=== PATIENT | female | born 1995 | race Caucasian/White ===

== ENCOUNTER 2016-07-04 22:58 | Emergency (ER) | payer OTHER ==
[2016-07-05 00:07] VITALS: BP 103/72
--- NOTE | 2016-07-05 01:20 | ER Document Report ---
ED General - General Chief Complaint: Abdominal Pain Stated Complaint: ABDOMINAL PAIN Notes: Patient is a 21-year-old female presents with complaints of abdominal pain. She 's initially registered as a ER patient. She's 31 weeks . She says she started having abdominal pain that radiates to her back with vomiting after eating tonight. She's never had a pain like this before. This is her first . Since being in the waiting room she now is having pain that is coming in waves similar to contractions. Pain does radiate to her back. No abnormal vaginal bleeding or discharge. She denies any feelings of her water breaking. I did do a quick evaluation of the patient in the triage room. She has pain in both lower and upper abdomen. Her pain does appear to coming in waves like contractions. She denies previous abdominal surgeries. TRAVEL OUTSIDE OF THE [place] IN LAST 30 DAYS: No - Related Data Allergies/Adverse Reactions: No Known Allergies Allergy (Verified 07/05/16 00:03) Home Medications: Current Home Medications Docosahexanoic Acid [ Dha] 1 cap PO DAILY 07/05/16 [History] Ferrous Sulfate [Ferrous Sulfate] 1 tab PO DAILY 07/05/16 [History] Past Medical History - Social History Smoking Status: Unknown if Ever Smoked Frequency of alcohol use: None Drug Abuse: None Family History: Reviewed & Not Pertinent Renal/ Medical History: Denies: Hx Peritoneal Dialysis Review of Systems - Review of Systems Notes: My Normal Review Basic REVIEW OF SYSTEMS: CONSTITUTIONAL : Denies fever, chills, or sweats. Denies recent illness. EENT: Denies eye, ear, throat, or mouth pain or symptoms. Denies nasal or sinus congestion. CARDIOVASCULAR: Denies chest pain. RESPIRATORY: Denies cough, cold, or chest congestion. Denies shortness of breath, difficulty breathing, or wheezing. GASTROINTESTINAL: Anterior abdominal pain. Vomiting. Denies constipation. Last BM: GENITOURINARY: Denies difficulty urinating, painful urination, burning, frequency, or blood in urine. FEMALE GENITOURINARY: Denies vaginal bleeding, abnormal or irregular periods. LMP: 31 weeks MUSCULOSKELETAL: Denies neck or back pain or joint pain or swelling. SKIN: Denies rash or skin lesions. ALL OTHER SYSTEMS REVIEWED AND NEGATIVE. Physical Exam - Vital signs Vitals: Temp Pulse Resp BP Pulse Ox 98.3 F 92 20 103/72 100 07/05/16 00:04 07/05/16 00:04 07/05/16 00:04 07/05/16 00:04 07/05/16 00:04 - Notes Notes: General Appearance: Well nourished, alert, cooperative, no acute distress, moderate obvious discomfort. Vitals: reviewed, See vital signs table. Eyes: PERRL, EOMI, Conjuctiva clear Lungs: No wheezing, No rales, No rhonci, No accessory muscle use, good air exchange bilaterally. Heart: Normal rate, Regular rythm, No murmur, no rub Abdomen: Normal BS, soft, No rigidity, or shortness pain palpation over her anterior abdomen that is on both sides and over both upper and lower part of her abdomen. Abdomen is gravid consistent with her being 31 weeks . No guarding, no rebound, no abdominal masses, no organomegaly Extremities: strength 5/5 in all extremities, good pulses in all extremities, no swelling or tenderness in the extremities, no edema. Skin: warm, dry, appropriate color, no rash Neuro: speech clear, oriented x 3, normal affect, responds appropriately to questions. Course - Vital Signs Vital signs: Temp Pulse Resp BP Pulse Ox 98.3 F 92 20 103/72 100 07/05/16 00:04 07/05/16 00:04 07/05/16 00:04 07/05/16 00:04 07/05/16 00:04 - Transfer of Care Notes: 07/05/16 01:19 In waves that raise from abdomen to her back. She is 31 weeks . I do not want to delay her going up to labor and delivery as she may be in labor. Patient will be sent up to labor and delivery for labor check. If she is not labor then will have her sent back down to the ER to do further workup of her abdominal pain and vomiting. Discharge - Discharge Clinical Impression: Abdominal pain Qualifiers: Abdominal location: generalized Qualified Code(s): R10.84 - Generalized abdominal pain Back pain Qualifiers: Back pain location: low back pain Chronicity: acute Back pain laterality: bilateral Sciatica presence: without sciatica Qualified Code(s): M54.5 - Low back pain Qualifiers: Weeks of gestation: 31 weeks Qualified Code(s): Z3A.31 - 31 weeks gestation of Condition: Good Disposition: LABOR CHECK
== END 2016-07-05 01:35 | disposition admitted as inpatient to this hospital (09) ==
LOC: ER 22:58
DX: R10.84 Generalized abdominal pain (principal); M54.5 Low back pain; R10.9 Unspecified abdominal pain; Z79.899 Other long term (current) drug therapy; Z3A.31 31 weeks gestation of pregnancy
CPT/HCPCS: 99283

== ENCOUNTER 2016-07-05 01:21 | Inpatient (IN) | payer OTHER ==
[2016-07-05] MEDS ORDERED: ONDANSETRON HCL INJ/PF 4 MG/2 ML SDV ONE ×2 (02:43→08:17)
[2016-07-05] MEDS ORDERED: ONDANSETRON HCL INJ/PF 4 MG/2 ML SDV IV ONE (02:56)
[2016-07-05] MEDS ORDERED: RINGERS SOLUTION,LACTATED 1,000 ML IV ONE (02:57)
[2016-07-05] MEDS ORDERED: RINGERS SOLUTION,LACTATED 1,000 ML IV PRN (04:15)
[2016-07-05] MEDS ORDERED: FAMOTIDINE INJ/PF 20 MG/2 ML SDV IV ONE ×2 (05:38→05:47)
[2016-07-05] MEDS ORDERED: DICYCLOMINE HCL 20 MG TABLET PO ONE (05:38)
[2016-07-05] MEDS ORDERED: DICYCLOMINE HCL 20 MG TABLET ONE (05:56)
[2016-07-05 06:17] LABS: ABSOLUTE LYMPHOCYTES (AUTO) 0.9 10^3/uL (0.5-4.7); ABSOLUTE MONOCYTES (AUTO) 0.8 10^3/uL (0.1-1.4); ABSOLUTE NEUT (AUTO) 14.6 10^3/uL (1.7-8.2); BASOPHILS % (AUTO) 0.2 % (0-2); EOSINOPHILS % (AUTO) 0.1 % (0-6); HEMATOCRIT 31.6 % (36.0-47.0); HEMOGLOBIN 10.9 g/dL (12.0-15.5); HGB HCT DIFFERENCE 1.1; LYMPHOCYTES % (AUTO) 5.5 % (13-45); MEAN CORPUSCULAR HEMOGLOBIN 31.9 pg (27.0-33.4); MEAN CORPUSCULAR HGB CONC 34.4 g/dL (32.0-36.0); MEAN CORPUSCULAR VOLUME 93 fl (80-97); MONOCYTES % (AUTO) 4.9 % (3-13); RED BLOOD COUNT 3.41 10^6/uL (3.72-5.28); SEGMENTED NEUTROPHILS % (AUTO) 89.3 % (42-78); WHITE BLOOD COUNT 16.4 10^3/uL (4.0-10.5)
[2016-07-05] MEDS: DEXTROSE 5%-LACTATED RINGERS 1,000 ML IV PRN ×3 (06:20→20:56)
[2016-07-05 06:45] LABS: ALANINE AMINOTRANSFERASE 24 U/L (9-52); ALBUMIN 3.2 g/dL (3.5-5.0); ALKALINE PHOSPHATASE 85 U/L (38-126); ANION GAP 8 (5-19); ASPARTATE AMINO TRANSFERASE 20 U/L (14-36); BILIRUBIN,DIRECT 0.3 mg/dL (0.0-0.4); BILIRUBIN,TOTAL 0.5 mg/dL (0.2-1.3); BLOOD UREA NITROGEN 5 mg/dL (7-20); CARBON DIOXIDE 21 mmol/L (22-30); CHLORIDE 109 mmol/L (98-107); CREATININE RESULT 0.42 mg/dL (0.52-1.25); GLUCOSE 106 mg/dL (75-110); POTASSIUM 3.9 mmol/L (3.6-5.0); SODIUM 138.4 mmol/L (137-145); TOTAL PROTEIN 6.1 g/dL (6.3-8.2)
[2016-07-05 07:32] LABS: APPEARANCE,URINE CLEAR; BILIRUBIN,URINE NEGATIVE (NEGATIVE); GLUCOSE, URINE 50 mg/dL (NEGATIVE); KETONES,URINE NEGATIVE (NEGATIVE); LEUKOCYTE ESTERASE,URINE NEGATIVE (NEGATIVE); NITRITE,URINE NEGATIVE (NEGATIVE); PROTEIN,URINE NEGATIVE (NEGATIVE); UROBILINOGEN,URINE NEGATIVE mg/dL (<2.0)
[2016-07-05 07:47] LABS: URINE BARBITURATES SCREEN NEGATIVE; URINE METHADONE SCREEN NEGATIVE; URINE OPIATES LOW NEGATIVE; URINE PHENCYCLIDINE SCREEN NEGATIVE
[2016-07-05 07:54] LABS: AMYLASE 3933 U/L (30-110)
[2016-07-05 08:11] LABS: LIPASE 42409.9 U/L (23-300)
[2016-07-05] MEDS ORDERED: HYDROMORPHONE HCL INJ/PF 2 MG/ML AMPULE ONE ×2 (08:17→11:38)
[2016-07-05] MEDS: FAMOTIDINE INJ/PF 20 MG/2 ML SDV IV SCH ×2 (10:20→22:10)
[2016-07-05] MEDS: HYDROMORPHONE HCL INJ/PF 2 MG/ML AMPULE IV PRN ×4 (11:40→22:31)
--- NOTE | 2016-07-05 15:53 | CONSULTATION REPORT E ---
Consultation Report NAME: JOCELYN CANTU : 1995 AGE: 21Y DATE: 207 A TO: WIN JENKINS M.D. FROM: AMISH WEINER M.D. Requesting Physician REASON FOR CONSULTATION: Patient with abdominal pains and elevated lipase and amylase. HISTORY OF PRESENT ILLNESS: This is a 22-year-old female, about 31 weeks , complaining of severe epigastric pains last night after eating somewhat fatty meal. This was associated with nausea and vomiting. She went to the emergency room, where she was noted to have a white count of 16.4 and an ultrasound showed gallstones. No evidence of cholecystitis or dilated ducts. However, [place] amyl[place] 3933 [place] [address]. PAST HISTORY: Unremarkable. SOCIAL HISTORY: Used to smoke, but has stopped. Denies alcohol use or recreational drug use. ALLERGIES: None known. REVIEW OF SYSTEMS: As in HPI. Denies any cough, shortness of breath, chest pains, diarrhea, constipation, or dysuria. Complaint of severe epigastric pains, associated nausea and vomiting. Denies any fever or chills. The rest of the systems are unremarkable. PHYSICAL EXAMINATION: Well-developed, well-nourished 21-year-old female, 31 weeks , alert, oriented, complaining of epigastric pain. HEENT: Neck is supple, no thyromegaly. Lungs are clear. Heart: Regular sinus rhythm. Abdomen is soft, but marked tenderness at the epigastric area. Extremities: No edema. IMPRESSION: Gallstone pancreatitis in at 31 weeks. Patient to be on bowel rest and hydration, and monitor the labs. DICTATING PHYSICIAN: WIN JENKINS M.D. [id number] PHY#: [id number] ID: [id number] JOB#: [id number] ACCT: [id number] cc:WIN JENKINS M.D. >
[2016-07-05] MEDS: ONDANSETRON HCL INJ/PF 4 MG/2 ML SDV IV PRN (17:06)
[2016-07-06] MEDS: ONDANSETRON HCL INJ/PF 4 MG/2 ML SDV IV PRN ×2 (02:06→12:18)
[2016-07-06] MEDS: HYDROMORPHONE HCL INJ/PF 2 MG/ML AMPULE IV PRN ×7 (02:06→23:50)
[2016-07-06] MEDS: DEXTROSE 5%-LACTATED RINGERS 1,000 ML IV PRN ×3 (05:06→20:33)
[2016-07-06 06:57] LABS: HEMATOCRIT 31.2 % (36.0-47.0); HEMOGLOBIN 10.7 g/dL (12.0-15.5); HGB HCT DIFFERENCE 0.9; MEAN CORPUSCULAR HEMOGLOBIN 31.9 pg (27.0-33.4); MEAN CORPUSCULAR HGB CONC 34.2 g/dL (32.0-36.0); MEAN CORPUSCULAR VOLUME 93 fl (80-97); RED BLOOD COUNT 3.35 10^6/uL (3.72-5.28); RED CELL DISTRIBUTION WIDTH 12.8 % (11.5-14.0); WHITE BLOOD COUNT 17.5 10^3/uL (4.0-10.5)
[2016-07-06 07:10] LABS: ALANINE AMINOTRANSFERASE 20 U/L (9-52); ALBUMIN 2.9 g/dL (3.5-5.0); ALKALINE PHOSPHATASE 82 U/L (38-126); AMYLASE 1020 U/L (30-110); ANION GAP 7 (5-19); ASPARTATE AMINO TRANSFERASE 16 U/L (14-36); BILIRUBIN,DIRECT 0.3 mg/dL (0.0-0.4); BILIRUBIN,TOTAL 0.7 mg/dL (0.2-1.3); BLOOD UREA NITROGEN 3 mg/dL (7-20); CALCIUM 9.2 mg/dL (8.4-10.2); CARBON DIOXIDE 24 mmol/L (22-30); CHLORIDE 108 mmol/L (98-107); GLUCOSE 118 mg/dL (75-110); SODIUM 139.3 mmol/L (137-145); TOTAL PROTEIN 5.7 g/dL (6.3-8.2)
[2016-07-06 07:12] LABS: BASOPHILS % (MANUAL) 0 % (0-2); EOSINOPHILS % (MANUAL) 0 % (0-6); LYMPHOCYTES % (MANUAL) 2 % (13-45); OVALOCYTES SLIGHT; POIKILOCYTOSIS SLIGHT; TOTAL CELLS COUNTED 100
[2016-07-06 07:14] LABS: POTASSIUM 3.8 mmol/L (3.6-5.0)
--- NOTE | 2016-07-06 09:28 | PROGRESS NOTE E ---
Progress Note NAME: JOCELYN CANTU : 1995 AGE: 21Y DATE: 07/06/2016 ROOM: 207 SUBJECTIVE: Patient is still having mid abdominal epigastric pain. She has not had any nausea or vomiting. OBJECTIVE: Patient has [id number] tenderness in the epigastric region. No peritoneal signs. DIAGNOSTIC DATA: Lipase 6500, decreasing from 42,000. Amylase 1000, decreasing from around 4000. White blood cell count 16.4, increasing to 17.5. ASSESSMENT: GALLSTONE PANCREATITIS WITH THE PATIENT STABLE CLINICALLY WITH ENZYMES DECREASING. I would recommend that the patient continue n.p.o. until her pancreatitis resolves. Because she is almost 32 weeks, I would wait until after her delivery in order to consider laparoscopic cholecystectomy with intraoperative cholangiogram. I have discussed the risks of waiting in which she could have recurrent pancreatitis that may be even worse than it is now, but there is also risk of doing the surgery at the current time with difficult visualization and needing x-rays to complete the procedure. I do not think at this time that I would recommend inducing her labor at 34 weeks and then doing her surgery post delivery. PLAN: 1. Continue n.p.o. May have sips of liquid. 2. Follow pancreatic enzymes. 3. I do not think that her pancreatitis is significant enough where she needs to be on antibiotics at this time. DICTATING PHYSICIAN: ANA LIM M.D. [id number] PHY#: [id number] ID: [id number] JOB#: [id number] ACCT: [id number] cc: >
[2016-07-06] MEDS ORDERED: FONDAPARINUX SODIUM INJ 2.5 MG/0.5 ML DISP.SYRIN SUBCUT SCH (10:00)
[2016-07-06] MEDS: FAMOTIDINE INJ/PF 20 MG/2 ML SDV IV SCH ×2 (11:20→22:21)
[2016-07-06] MEDS ORDERED: HEPARIN SOD (PORCINE) 5,000 UNIT/ML 1 ML SYRINGE SUBCUT SCH (14:00)
--- NOTE | 2016-07-06 22:39 | PDOC PROGRESS REPORT ---
Subjective Progress Note for:: 07/06/16 Subjective:: pt reports pain improved but has now moved to her back. +FM. no vb/lof/ctx. Pt denies f/c/n/v Physical Exam - Physical Exam Vital Signs: Temp Pulse Resp BP Pulse Ox 99.6 F 130 H 20 123/73 94 07/06/16 20:38 07/06/16 20:38 07/06/16 20:38 07/06/16 20:38 07/06/16 20:38 Intake & Output 07/05/16 07/06/16 07/07/16 06:59 06:59 06:59 Intake Total 3750 Balance 3750 Weight 69 kg General appearance: PRESENT: no acute distress, well-developed, well-nourished Head exam: PRESENT: atraumatic, normocephalic Respiratory exam: PRESENT: symmetrical, unlabored GI/Abdominal exam: PRESENT: normal bowel sounds, soft, tenderness - epigastric and RUQ ttp. ABSENT: distended, guarding, mass, organolmegaly, rebound Rectal exam: PRESENT: deferred Extremities exam: PRESENT: full ROM. ABSENT: calf tenderness, clubbing, pedal edema Neurological exam: PRESENT: alert, awake, oriented to person, oriented to place , oriented to time, oriented to situation, CN II-XII grossly intact. ABSENT: motor sensory deficit Psychiatric exam: PRESENT: appropriate affect, normal mood. ABSENT: homicidal ideation, suicidal ideation Skin exam: PRESENT: dry, intact, warm. ABSENT: cyanosis, rash Result Laboratory Results: 07/06/16 06:37 07/06/16 06:37 07/06/16 07/06/16 06:37 06:37 WBC 17.5 H RBC 3.35 L Hgb 10.7 L Hct 31.2 L MCV 93 MCH 31.9 MCHC 34.2 RDW 12.8 Plt Count 170 Seg Neutrophils % Not Reportable Lymphocytes % Not Reportable Monocytes % Not Reportable Eosinophils % Not Reportable Basophils % Not Reportable Absolute Neutrophils Not Reportable Absolute Lymphocytes Not Reportable Absolute Monocytes Not Reportable Absolute Eosinophils Not Reportable Absolute Basophils Not Reportable Sodium 139.3 Potassium 3.8 Chloride 108 H Carbon Dioxide 24 Anion Gap 7 BUN 3 L Creatinine 0.50 L Est GFR ( Amer) > 60 Est GFR (Non-Af Amer) > 60 Glucose 118 H Calcium 9.2 Total Bilirubin 0.7 AST 16 ALT 20 Alkaline Phosphatase 82 Total Protein 5.7 L Albumin 2.9 L Amylase 1020 H Lipase 6560.0 H Impressions: Abdomen Ultrasound 07/05/16 00:00 IMPRESSION: 1. Cholelithiasis. No evidence of acute cholecystitis. 2. Mild caliectasis and pelvic dilatation in the right kidney. This, however, falls within expected limits for a patient at this stage of . Assessment & Plan - Diagnosis (1) Qualifiers: Weeks of gestation: 32 weeks Qualified Code(s): Z3A.32 - 32 weeks gestation of Is this a current diagnosis for this admission?: YesPlan: Pt with 31+6wks IUP. continued Q shift FHTs. Will add q 2-3 days NST due to ega and comorbidities until pancreatitis has resolved enough to discharge pt. Reviewed meds and ok with Lovenox for DVT risk. Pt also on SCDs and pain mangement. Will defer management of pancreatitis and discharge plan to Gen Surg. Appreciate their assistance with this pt. Will continue to follow. She will f/u in the office once ok for discharge. REviewed with pt that discharge is pending improvement and will be up to Gen Surg from pancreatitis standpoint. Her pain is still present but improves with meds. (2) Pancreatitis Qualifiers: Chronicity: acute Pancreatitis type: biliary Is this a current diagnosis for this admission?: YesPlan: Cholelithiasis on US. Labs are improving. Will continue daily labs. Currently NPO and improving. Continue Lovenox. Plan for removal of Gallbladder after delivery per Gen Surg. Again appreciate their assistance with this pt. - Time Time Spent with patient: Less than 15 minutes Critical Time spent with patient: Less than 15 minutes Medications reviewed and adjusted accordingly: Yes Anticipated discharge: Home Within: Other - when pancreatitis improved - Inpatient Certification Based on my medical assessment, after consideration of the patient's comorbidities, presenting symptoms, or acuity I expect that the services needed warrant INPATIENT care.: Yes I certify that my determination is in accordance with my understanding of Medicare's requirements for reasonable and necessary INPATIENT services [42 CFR 412.3e].: Yes Medical Necessity: Failure to Improve With Outpatient Therapy, Need Close Monitoring Due to Risk of Patient Decompensation, Need For IV Fluids, Need for Pain Control, Risk of Complication if Not Cared For in Hospital Post Hospital Care: D/C Personal Banker Documentation
[2016-07-06 23:58] LABS: APPEARANCE,URINE CLEAR; BILIRUBIN,URINE NEGATIVE (NEGATIVE); GLUCOSE, URINE NEGATIVE (NEGATIVE); KETONES,URINE NEGATIVE (NEGATIVE); LEUKOCYTE ESTERASE,URINE NEGATIVE (NEGATIVE); NITRITE,URINE NEGATIVE (NEGATIVE); PROTEIN,URINE NEGATIVE (NEGATIVE); URINE SPECIFIC GRAVITY 1.005; UROBILINOGEN,URINE NEGATIVE mg/dL (<2.0)
[2016-07-07] MEDS: HYDROMORPHONE HCL INJ/PF 2 MG/ML AMPULE IV PRN ×5 (03:55→21:25)
[2016-07-07] MEDS: DEXTROSE 5%-LACTATED RINGERS 1,000 ML IV PRN ×3 (03:56→20:07)
[2016-07-07 06:39] LABS: ABSOLUTE EOSINOPHILS # (AUTO) 0.1 10^3/uL (0.0-0.6); ABSOLUTE LYMPHOCYTES (AUTO) 0.8 10^3/uL (0.5-4.7); ABSOLUTE MONOCYTES (AUTO) 1.4 10^3/uL (0.1-1.4); BASOPHILS % (AUTO) 0.2 % (0-2); EOSINOPHILS % (AUTO) 0.4 % (0-6); HEMATOCRIT 28.2 % (36.0-47.0); HEMOGLOBIN 9.7 g/dL (12.0-15.5); HGB HCT DIFFERENCE 0.9; LYMPHOCYTES % (AUTO) 5.1 % (13-45); MEAN CORPUSCULAR HEMOGLOBIN 31.8 pg (27.0-33.4); MEAN CORPUSCULAR HGB CONC 34.2 g/dL (32.0-36.0); MEAN CORPUSCULAR VOLUME 93 fl (80-97); MONOCYTES % (AUTO) 8.8 % (3-13); RED BLOOD COUNT 3.04 10^6/uL (3.72-5.28); RED CELL DISTRIBUTION WIDTH 13.1 % (11.5-14.0); SEGMENTED NEUTROPHILS % (AUTO) 85.5 % (42-78); WHITE BLOOD COUNT 16.4 10^3/uL (4.0-10.5)
[2016-07-07 07:02] LABS: ALANINE AMINOTRANSFERASE 24 U/L (9-52); ALBUMIN 2.4 g/dL (3.5-5.0); ALKALINE PHOSPHATASE 75 U/L (38-126); AMYLASE 417 U/L (30-110); ANION GAP 8 (5-19); ASPARTATE AMINO TRANSFERASE 17 U/L (14-36); BILIRUBIN,TOTAL 0.5 mg/dL (0.2-1.3); BLOOD UREA NITROGEN 3 mg/dL (7-20); CALCIUM 8.6 mg/dL (8.4-10.2); CARBON DIOXIDE 25 mmol/L (22-30); CHLORIDE 107 mmol/L (98-107); CREATININE RESULT 0.47 mg/dL (0.52-1.25); GLUCOSE 91 mg/dL (75-110); SODIUM 139.6 mmol/L (137-145); TOTAL PROTEIN 4.9 g/dL (6.3-8.2)
[2016-07-07] MEDS ORDERED: POTASSIUM CHLORIDE 20 MEQ/50 ML RTU IV ONE (08:30)
[2016-07-07] MEDS: ONDANSETRON HCL INJ/PF 4 MG/2 ML SDV IV PRN ×2 (08:32→20:07)
[2016-07-07] MEDS: ENOXAPARIN SODIUM INJ 40 MG/0.4 ML DISP.SYRIN SUBCUT SCH (08:40)
[2016-07-07] MEDS: FAMOTIDINE INJ/PF 20 MG/2 ML SDV IV SCH ×2 (09:32→21:25)
--- NOTE | 2016-07-07 10:27 | PDOC PROGRESS REPORT ---
Subjective Progress Note for:: 07/07/16 Subjective:: pt indicates she is feeling much better. Is having pain controlled with IV pain meds. Is still NPO per surgery recs. Physical Exam - Physical Exam Vital Signs: Temp Pulse Resp BP Pulse Ox 98.3 F 122 H 18 108/54 L 94 07/07/16 08:11 07/07/16 08:11 07/07/16 08:11 07/07/16 08:11 07/07/16 08:11 Intake & Output 07/06/16 07/07/16 07/08/16 06:59 06:59 06:59 Intake Total 3750 1500 Balance 3750 1500 General appearance: PRESENT: no acute distress, cooperative Vascular exam: PRESENT: normal capillary refill GI/Abdominal exam: PRESENT: soft - gravid, nontender Musculoskeletal exam: PRESENT: ambulatory, full ROM Result Laboratory Results: 07/07/16 05:52 07/07/16 05:52 07/06/16 07/07/16 07/07/16 23:20 05:52 05:52 WBC 16.4 H RBC 3.04 L Hgb 9.7 L Hct 28.2 L MCV 93 MCH 31.8 MCHC 34.2 RDW 13.1 Plt Count 172 Seg Neutrophils % 85.5 H Lymphocytes % 5.1 L Monocytes % 8.8 Eosinophils % 0.4 Basophils % 0.2 Absolute Neutrophils 14.0 H Absolute Lymphocytes 0.8 Absolute Monocytes 1.4 Absolute Eosinophils 0.1 Absolute Basophils 0.0 Sodium 139.6 Potassium 3.0 L* Chloride 107 Carbon Dioxide 25 Anion Gap 8 BUN 3 L Creatinine 0.47 L Est GFR ( Amer) > 60 Est GFR (Non-Af Amer) > 60 Glucose 91 Calcium 8.6 Total Bilirubin 0.5 AST 17 ALT 24 Alkaline Phosphatase 75 Total Protein 4.9 L Albumin 2.4 L Amylase 417 H Urine Color YELLOW Urine Appearance CLEAR Urine pH 8.0 Ur Specific [place] 1.005 Urine Protein NEGATIVE Urine Glucose (UA) NEGATIVE Urine Ketones NEGATIVE Urine Blood NEGATIVE Urine Nitrite NEGATIVE Ur Leukocyte Esterase NEGATIVE Urine WBC (Auto) 1 Urine RBC (Auto) 0 Impressions: Abdomen Ultrasound 07/05/16 00:00 IMPRESSION: 1. Cholelithiasis. No evidence of acute cholecystitis. 2. Mild caliectasis and pelvic dilatation in the right kidney. This, however, falls within expected limits for a patient at this stage of . Assessment & Plan - Diagnosis (1) Pancreatitis Qualifiers: Chronicity: acute Pancreatitis type: biliary Is this a current diagnosis for this admission?: Yes (2) Abdominal pain Qualifiers: Abdominal location: generalized Qualified Code(s): R10.84 - Generalized abdominal pain (3) Back pain Qualifiers: Back pain location: low back pain Chronicity: acute Back pain laterality: bilateral Sciatica presence: without sciatica Qualified Code (s): M54.5 - Low back pain Is this a current diagnosis for this admission?: Yes (4) Qualifiers: Weeks of gestation: 32 weeks Qualified Code(s): Z3A.32 - 32 weeks gestation of Is this a current diagnosis for this admission?: Yes - Inpatient Certification Based on my medical assessment, after consideration of the patient's comorbidities, presenting symptoms, or acuity I expect that the services needed warrant INPATIENT care.: Yes I certify that my determination is in accordance with my understanding of Medicare's requirements for reasonable and necessary INPATIENT services [42 CFR 412.3e].: Yes Medical Necessity: Need Close Monitoring Due to Risk of Patient Decompensation, Need For IV Fluids, Need for Pain Control, Need for Surgery - Plan Summary Plan Summary: will manage per surgery recs (Thank you for your assistance with management.) Lipase added to morning labs to see trend. Pt finishing K-Idris for decreased K +.
--- NOTE | 2016-07-07 17:49 | PDOC PROGRESS REPORT ---
Subjective Progress Note for:: 07/07/16 Physical Exam - Physical Exam Vital Signs: Temp Pulse Resp BP Pulse Ox 98.5 F 100 18 123/65 96 07/07/16 15:47 07/07/16 15:47 07/07/16 15:47 07/07/16 15:47 07/07/16 15:47 Intake & Output 07/06/16 07/07/16 07/08/16 06:59 06:59 06:59 Intake Total 3750 1500 970 Balance 3750 1500 970 Result Laboratory Results: 07/07/16 05:52 07/07/16 05:52 07/06/16 07/07/16 07/07/16 23:20 05:52 05:52 WBC 16.4 H RBC 3.04 L Hgb 9.7 L Hct 28.2 L MCV 93 MCH 31.8 MCHC 34.2 RDW 13.1 Plt Count 172 Seg Neutrophils % 85.5 H Lymphocytes % 5.1 L Monocytes % 8.8 Eosinophils % 0.4 Basophils % 0.2 Absolute Neutrophils 14.0 H Absolute Lymphocytes 0.8 Absolute Monocytes 1.4 Absolute Eosinophils 0.1 Absolute Basophils 0.0 Sodium 139.6 Potassium 3.0 L* Chloride 107 Carbon Dioxide 25 Anion Gap 8 BUN 3 L Creatinine 0.47 L Est GFR ( Amer) > 60 Est GFR (Non-Af Amer) > 60 Glucose 91 Calcium 8.6 Total Bilirubin 0.5 AST 17 ALT 24 Alkaline Phosphatase 75 Total Protein 4.9 L Albumin 2.4 L Amylase 417 H Lipase Urine Color YELLOW Urine Appearance CLEAR Urine pH 8.0 Ur Specific [place] 1.005 Urine Protein NEGATIVE Urine Glucose (UA) NEGATIVE Urine Ketones NEGATIVE Urine Blood NEGATIVE Urine Nitrite NEGATIVE Ur Leukocyte Esterase NEGATIVE Urine WBC (Auto) 1 Urine RBC (Auto) 0 07/07/16 05:52 WBC RBC Hgb Hct MCV MCH MCHC RDW Plt Count Seg Neutrophils % Lymphocytes % Monocytes % Eosinophils % Basophils % Absolute Neutrophils Absolute Lymphocytes Absolute Monocytes Absolute Eosinophils Absolute Basophils Sodium Potassium Chloride Carbon Dioxide Anion Gap BUN Creatinine Est GFR ( Amer) Est GFR (Non-Af Amer) Glucose Calcium Total Bilirubin AST ALT Alkaline Phosphatase Total Protein Albumin Amylase Lipase 1465.6 H Urine Color Urine Appearance Urine pH Ur Specific [place] Urine Protein Urine Glucose (UA) Urine Ketones Urine Blood Urine Nitrite Ur Leukocyte Esterase Urine WBC (Auto) Urine RBC (Auto) Impressions: Abdomen Ultrasound 07/05/16 00:00 IMPRESSION: 1. Cholelithiasis. No evidence of acute cholecystitis. 2. Mild caliectasis and pelvic dilatation in the right kidney. This, however, falls within expected limits for a patient at this stage of . Assessment & Plan - Diagnosis (1) Pancreatitis Qualifiers: Chronicity: acute Pancreatitis type: biliary Is this a current diagnosis for this admission?: Yes (2) Abdominal pain Qualifiers: Abdominal location: generalized Qualified Code(s): R10.84 - Generalized abdominal pain (3) Back pain Qualifiers: Back pain location: low back pain Chronicity: acute Back pain laterality: bilateral Sciatica presence: without sciatica Qualified Code (s): M54.5 - Low back pain Is this a current diagnosis for this admission?: Yes (4) Qualifiers: Weeks of gestation: 32 weeks Qualified Code(s): Z3A.32 - 32 weeks gestation of Is this a current diagnosis for this admission?: Yes - Plan Summary Plan Summary: Spoke with Dr. Castano fro Gen Surgery who recommended continuing clear liquid diet only. Indicates that Pancreatitis needs to resolve more before resuming a more normal diet. Will keep patient with clear liquids and repeat labs in the AM to follow enzyme trend.
--- NOTE | 2016-07-07 22:53 | PROGRESS NOTE E ---
Progress Note NAME: JOCELYN CANTU : 1995 AGE: 21Y DATE: 07/07/2016 ROOM: 207 SUBJECTIVE: The patient is approximately 32 weeks presenting with gallstone pancreatitis. The patient's abdominal pain has improved but is still significant. She denies any significant nausea and vomiting. OBJECTIVE: Patient has mild to moderate tenderness in epigastric region. No peritoneal signs. DIAGNOSTIC DATA: White blood cell count is 16.4, hemoglobin 9.7. Amylase 417. Lipase 1465. Liver function tests are within normal limits. ASSESSMENT: Gallstone pancreatitis. The pancreatitis symptoms have improved along with her laboratory values but are still elevated and she is still having pain. I would recommend continued pancreatic rest until her symptoms have improved even more. PLAN: Continue water only, resting the pancreas until her symptoms improve further. We will continue to follow lipase and amylase. DICTATING PHYSICIAN: ANA LIM M.D. [id number] PHY#: [id number] ID: [id number] JOB#: [id number] ACCT: [id number] cc: >
[2016-07-08] MEDS: HYDROMORPHONE HCL INJ/PF 2 MG/ML AMPULE IV PRN (03:31)
[2016-07-08] MEDS: DEXTROSE 5%-LACTATED RINGERS 1,000 ML IV PRN (05:10)
[2016-07-08 06:28] LABS: HEMOGLOBIN 9.7 g/dL (12.0-15.5); HGB HCT DIFFERENCE 1.1; MEAN CORPUSCULAR HEMOGLOBIN 32.2 pg (27.0-33.4); MEAN CORPUSCULAR HGB CONC 34.5 g/dL (32.0-36.0); MEAN CORPUSCULAR VOLUME 93 fl (80-97); RED CELL DISTRIBUTION WIDTH 12.8 % (11.5-14.0); WHITE BLOOD COUNT 12.9 10^3/uL (4.0-10.5)
[2016-07-08 06:57] LABS: ALANINE AMINOTRANSFERASE 19 U/L (9-52); ALBUMIN 2.4 g/dL (3.5-5.0); ALKALINE PHOSPHATASE 82 U/L (38-126); AMYLASE 114 U/L (30-110); ANION GAP 9 (5-19); ASPARTATE AMINO TRANSFERASE 17 U/L (14-36); BILIRUBIN,DIRECT 0.2 mg/dL (0.0-0.4); BILIRUBIN,TOTAL 0.7 mg/dL (0.2-1.3); BLOOD UREA NITROGEN 3 mg/dL (7-20); CALCIUM 8.4 mg/dL (8.4-10.2); CARBON DIOXIDE 24 mmol/L (22-30); CHLORIDE 106 mmol/L (98-107); GLUCOSE 86 mg/dL (75-110); LIPASE 295.1 U/L (23-300); POTASSIUM 3.1 mmol/L (3.6-5.0); SODIUM 139.4 mmol/L (137-145); TOTAL PROTEIN 4.9 g/dL (6.3-8.2)
--- NOTE | 2016-07-08 08:58 | PROGRESS NOTE E ---
Progress Note NAME: JOCELYN CANTU : 1995 AGE: 21Y DATE: 07/08/2016 ROOM: 207 SUBJECTIVE: The patient is approximately 32 weeks presenting with gallstone pancreatitis. Patient is not really having any significant abdominal pain at the current time. OBJECTIVE: Patient has minimal tenderness in the epigastric region. DIAGNOSTIC DATA: White blood cell count 12.9, hemoglobin 9.7. Lipase of 295. Amylase of 114. Liver function test within normal limits. ASSESSMENT: GALLSTONE PANCREATITIS. She is improved considerably since her admission, having minimal abdominal symptoms and almost normalization of her pancreatic enzymes. I would recommend seeing how she does with a low fat diet and if she has no return of pain, maybe discharge home. Because of being at 32 weeks, I would wait until at least 2 weeks after delivery to see about doing a laparoscopic cholecystectomy with intraoperative cholangiogram. I have explained to her that there is a likelihood of the gallstone pancreatitis returning and if it does, she is to come to the emergency room to be evaluated. PLAN: 1. Low fat diet. 2. Maybe discharge if no return of symptoms. 3. Follow up in [facility] in 1-2 weeks after being discharged. DICTATING PHYSICIAN: ANA LIM M.D. [id number] PHY#: [id number] ID: [id number] JOB#: [id number] ACCT: [id number] cc: >
[2016-07-08] MEDS: ENOXAPARIN SODIUM INJ 40 MG/0.4 ML DISP.SYRIN SUBCUT SCH (09:05)
[2016-07-08] MEDS: FAMOTIDINE INJ/PF 20 MG/2 ML SDV IV SCH (09:07)
--- NOTE | 2016-07-08 11:45 | PDOC DISCHARGE SUMMARY ---
General - Admit/Disc Date/PCP Admission Date/Primary Care Provider: 07/05/16 12:10 Discharge Date: 07/08/16 - Discharge Diagnosis (1) Pancreatitis Is this a current diagnosis for this admission?: YesSummary: The pt has improved by symtoms and labs with conservative therapy. Per Surgery the stone has passed and is no longer obstructing the pancreas. She can be discharged home. - Additional Information Home Medications: Ferrous Sulfate [Ferrous Sulfate] 1 tab PO DAILY 07/05/16 Vit/Iron Fumarate/FA [ Tablet] 1 each PO DAILY 07/05/16 History of Present Illness History of Present Illness: JOCELYN CANTU is a 21 year old female She presented with pancreatitis. This has responded to conservative therapy and she may now go home. Hospital Course Hospital Course: The stone has passed with conservative therapy and per general surgery she may go home. Physical Exam - Physical Exam Vital Signs: Temp Pulse Resp BP Pulse Ox 98.2 F 79 16 114/57 L 97 07/08/16 07:50 07/08/16 07:50 07/08/16 07:50 07/08/16 07:50 07/08/16 07:50 Intake & Output 07/07/16 07/08/16 07/09/16 06:59 06:59 06:59 Intake Total 1500 1170 Balance 1500 1170 General appearance: PRESENT: no acute distress Head exam: PRESENT: atraumatic GI/Abdominal exam: PRESENT: normal bowel sounds, soft. ABSENT: distended, guarding, mass, organolmegaly, rebound, tenderness Result Laboratory Results: 07/08/16 05:54 07/08/16 05:54 07/08/16 07/08/16 05:54 05:54 WBC 12.9 H RBC 3.00 L Hgb 9.7 L Hct 28.0 L MCV 93 MCH 32.2 MCHC 34.5 RDW 12.8 Plt Count 163 Sodium 139.4 Potassium 3.1 L Chloride 106 Carbon Dioxide 24 Anion Gap 9 BUN 3 L Creatinine 0.50 L Est GFR ( Amer) > 60 Est GFR (Non-Af Amer) > 60 Glucose 86 Calcium 8.4 Total Bilirubin 0.7 AST 17 ALT 19 Alkaline Phosphatase 82 Total Protein 4.9 L Albumin 2.4 L Amylase 114 H Lipase 295.1 Impressions: Abdomen Ultrasound 07/05/16 00:00 IMPRESSION: 1. Cholelithiasis. No evidence of acute cholecystitis. 2. Mild caliectasis and pelvic dilatation in the right kidney. This, however, falls within expected limits for a patient at this stage of . Plan Discharge Plan: Home on low fat diet. Follow up with OB and Gen Surg as planned. Time Spent: Less than 30 Minutes
[2016-07-08 13:27] VITALS: BP 129/69
--- NOTE | 2016-07-14 16:30 | Admission Physical ---
Datetime Report Generated by CPN: 07/14/2016 16:29 CURRENT ADMISSION Hx Assessment: The History has been Reviewed and is Current Chief Complaint: Other Admit Impression- Other: gastroenteritis Admit Plan: Observation/Evaluation ALLERGIES Medication Allergies: No Medication Allergies: No Known Allergies (07/05/2016) Latex: No Latex Allergies OBSTETRICAL HISTORY EDC: 09/01/2016 00:00 : 1 Para: 0 Term: 0 : 0 SAB: 0 IAB: 0 Ectopic: 0 Livin Cesareans: 0 VBACs: 0 Multiple Births: 0 Gestational Diabetes: No Rh Sensitization: No Incompetent Cervix: No ELZA: No Infertility: No ART Treatment: No Uterine Anomaly: No IUGR: No Hx Previous C/S: No Macrosomia: No Hx Loss/Stillborn: No PIH: No Hx : No Placenta Previa/Abruption: No Depression/PP Depression: No PTL/PROM: No Post Hemorrhage: No Current Procedures: Ultrasound Obstetrical History Comments: G1: current SEE RECORDS Alcohol: No Marijuana : No Cocaine: No Other Illicit Drugs: No Cigarettes: Former Smoker. [id number] MEDICAL HISTORY Diabetes: No Blood Transfusion: No Pulmonary Disease (Asthma, TB): No Breast Disease: No Hypertension: No Manager Laboratory Surgery: No Heart Disease: No Hosp/Surgery: No Autoimmune Disorder: No Anesthetic Complications: No Kidney Disease: No Abnormal Pap Smear: No Neuro/Epilepsy: No Psychiatric Disorders: No Other Medical Diseases: No Hepatitis/Liver Disease: No Significant Family History: No Varicosities/Phlebitis: No Trauma/Violence : No Thyroid Dysfunction: No INFECTIOUS HISTORY Gonorrhea: No Genital Herpes: No Chlamydia: No Tuberculosis: No Syphilis: No Hepatitis: No HIV/AIDS Exposure: No Rash or Viral Illness: No HPV: No Infectious History Comments: denies PHYSICAL EXAM General: Abnormal Heart: Normal Back: Normal Abdomen: Abnormal Extremities: Normal Physical Exam Comments: Pt with n/v d for several hours. Has cramping before vomitng and diarrhea. VAGINAL EXAM Contraction Comments: none FETUS A EGA: 31.5 FHR Category: Category I Admit Comment: Obs for ivf and antiemetics/supportive care. PLANS FOR LABOR AND DELIVERY Labor and Delivery: None Pain Management: Epidural Feeding Preference: Both Benefit of Breast Feed Discussed: Yes INFORMED CONSENT Signature: with User ID: [email or web address]
--- NOTE | 2016-07-14 16:31 | Admission Physical ---
Datetime Report Generated by CPN: 07/14/2016 16:31 CURRENT ADMISSION Hx Assessment: The History has been Reviewed and is Current Chief Complaint: Other Admit Impression- Other: gastroenteritis Admit Plan: Observation/Evaluation ALLERGIES Medication Allergies: No Medication Allergies: No Known Allergies (07/05/2016) Latex: No Latex Allergies OBSTETRICAL HISTORY EDC: 09/01/2016 00:00 : 1 Para: 0 Term: 0 : 0 SAB: 0 IAB: 0 Ectopic: 0 Livin Cesareans: 0 VBACs: 0 Multiple Births: 0 Gestational Diabetes: No Rh Sensitization: No Incompetent Cervix: No ELZA: No Infertility: No ART Treatment: No Uterine Anomaly: No IUGR: No Hx Previous C/S: No Macrosomia: No Hx Loss/Stillborn: No PIH: No Hx : No Placenta Previa/Abruption: No Depression/PP Depression: No PTL/PROM: No Post Hemorrhage: No Current Procedures: Ultrasound Obstetrical History Comments: G1: current SEE RECORDS Alcohol: No Marijuana : No Cocaine: No Other Illicit Drugs: No Cigarettes: Former Smoker. [id number] MEDICAL HISTORY Diabetes: No Blood Transfusion: No Pulmonary Disease (Asthma, TB): No Breast Disease: No Hypertension: No Evaluation Engineer Surgery: No Heart Disease: No Hosp/Surgery: No Autoimmune Disorder: No Anesthetic Complications: No Kidney Disease: No Abnormal Pap Smear: No Neuro/Epilepsy: No Psychiatric Disorders: No Other Medical Diseases: No Hepatitis/Liver Disease: No Significant Family History: No Varicosities/Phlebitis: No Trauma/Violence : No Thyroid Dysfunction: No INFECTIOUS HISTORY Gonorrhea: No Genital Herpes: No Chlamydia: No Tuberculosis: No Syphilis: No Hepatitis: No HIV/AIDS Exposure: No Rash or Viral Illness: No HPV: No Infectious History Comments: denies PHYSICAL EXAM General: Abnormal Heart: Normal Back: Normal Abdomen: Abnormal Extremities: Normal Physical Exam Comments: Pt with n/v d for several hours. Has cramping before vomitng and diarrhea. VAGINAL EXAM Contraction Comments: none FETUS A FHR Category: Category I Admit Comment: Obs for ivf and antiemetics/supportive care. PLANS FOR LABOR AND DELIVERY Labor and Delivery: None Pain Management: Epidural Feeding Preference: Both Benefit of Breast Feed Discussed: Yes INFORMED CONSENT Signature: with User ID: [email or web address]
== END 2016-07-08 13:45 | disposition home or self-care (01) | DRG 781 ==
LOC: LC 01:21 → LR 05:55 → OBSVTOIN 12:10 → 2N 12:55
PROVIDERS: ADMIT Specialist; ATTEND Specialist
PROC: 4A1HXCZ Monitoring of Products of Conception, Cardiac Rate, External Approach (ICD-10-PCS; principal; 2016-07-05)
DX: O99.613 Diseases of the digestive system complicating pregnancy, third trimester (principal); K85.10 Biliary acute pancreatitis without necrosis or infection; Z87.891 Personal history of nicotine dependence; Z3A.31 31 weeks gestation of pregnancy
CPT/HCPCS: 36415; 76705; 80053; 80307; 81001; 82150; 83690; 85025; 85027; G0378; G0379; J1170; J1650; J2405; J3480; J3490; S0028

== ENCOUNTER 2016-08-22 20:35 | Outpatient (CLI) | payer OTHER ==
[2016-08-22 21:51] LABS: APPEARANCE,URINE CLEAR; BILIRUBIN,URINE NEGATIVE (NEGATIVE); GLUCOSE, URINE NEGATIVE (NEGATIVE); KETONES,URINE NEGATIVE (NEGATIVE); LEUKOCYTE ESTERASE,URINE NEGATIVE (NEGATIVE); NITRITE,URINE NEGATIVE (NEGATIVE); PROTEIN,URINE NEGATIVE (NEGATIVE); URINE SPECIFIC GRAVITY 1.004; UROBILINOGEN,URINE NEGATIVE mg/dL (<2.0)
[2016-08-22 22:10] LABS: URINE BARBITURATES SCREEN NEGATIVE; URINE METHADONE SCREEN NEGATIVE; URINE OPIATES LOW NEGATIVE; URINE PHENCYCLIDINE SCREEN NEGATIVE
[2016-08-23] MEDS ORDERED: OXYTOCIN/NORMAL SALINE 20 UNIT/1,000 ML RTUINJ ONE (03:29)
[2016-08-23] MEDS ORDERED: OXYTOCIN 10 UNIT/ML VIAL ONE (03:29)
== END 2016-08-23 00:19 | disposition home or self-care (01) ==
LOC: LC 20:35
PROVIDERS: ATTEND Obstetrics & Gynecology
PROC: 4A1HXCZ Monitoring of Products of Conception, Cardiac Rate, External Approach (ICD-10-PCS; principal; 2016-08-22)
DX: O47.03 False labor before 37 completed weeks of gestation, third trimester (principal); Z3A.38 38 weeks gestation of pregnancy
CPT/HCPCS: 59025; 81005; 80307; J2590 ×2

== ENCOUNTER 2016-08-23 03:04 | Inpatient (IN) | payer OTHER ==
[2016-08-23] MEDS ORDERED: MISOPROSTOL 0.2 MG TABLET ONE (03:25)
[2016-08-23] MEDS ORDERED: PROMETHAZINE HCL 25 MG SUPP.RECT PR PRN (04:27)
[2016-08-23] MEDS ORDERED: DIPH/PERTUSS(ACELL)/TETANUS VAC/PF 0.5 ML SYR (>=10YO) IM PRN (04:27)
[2016-08-23] MEDS ORDERED: ZOLPIDEM TARTRATE 5 MG TABLET PO PRN (04:27)
[2016-08-23] MEDS ORDERED: NA PHOS,M-B/NA PHOS,DI-BA (ADULT) 133 ML ENEMA PR PRN (04:27)
[2016-08-23] MEDS ORDERED: PROMETHAZINE HCL 25 MG TABLET PO PRN (04:27)
[2016-08-23] MEDS ORDERED: DIPHENHYDRAMINE HCL 25 MG CAPSULE PO PRN (04:27)
[2016-08-23] MEDS ORDERED: MAGNESIUM HYDROXIDE SUSP 30 ML UDCUP PO PRN (04:27)
[2016-08-23] MEDS ORDERED: MEASLES,MUMPS&RUBELLA VACC/PF 0.5 ML VIAL SUBCUT PRN (04:27)
[2016-08-23] MEDS ORDERED: PROMETHAZINE HCL INJ 25 MG/1 ML VIAL IV PRN (04:27)
[2016-08-23] MEDS ORDERED: BENZOCAINE/MENTHOL AEROSOL SPRAY 56 ML TOP PRN (04:27)
[2016-08-23] MEDS ORDERED: ACETAMINOPHEN WITH CODEINE #3 TABLET PO PRN ×2 (04:27)
[2016-08-23] MEDS ORDERED: GLYCERIN/WITCH HAZEL LEAF 1 EACH MED..PAD TP PRN (04:27)
[2016-08-23] MEDS ORDERED: ACETAMINOPHEN 650 MG SUPP.RECT PR PRN (04:27)
[2016-08-23] MEDS ORDERED: PSEUDOEPHEDRINE HCL 30 MG TABLET PO PRN (04:27)
[2016-08-23] MEDS ORDERED: OXYTOCIN/NORMAL SALINE 1,000 ML IV PRN (04:27)
[2016-08-23] MEDS ORDERED: DIBUCAINE 1% OINTMENT 28 GM TP PRN (04:27)
[2016-08-23 05:14] LABS: HEMATOCRIT 34.5 % (36.0-47.0); HEMOGLOBIN 11.3 g/dL (12.0-15.5); HGB HCT DIFFERENCE -0.6; MEAN CORPUSCULAR HEMOGLOBIN 31.2 pg (27.0-33.4); MEAN CORPUSCULAR HGB CONC 32.8 g/dL (32.0-36.0); MEAN CORPUSCULAR VOLUME 95 fl (80-97); RED BLOOD COUNT 3.63 10^6/uL (3.72-5.28); RED CELL DISTRIBUTION WIDTH 13.3 % (11.5-14.0); WHITE BLOOD COUNT 15.6 10^3/uL (4.0-10.5)
[2016-08-23 05:39] LABS: BAND NEUTROPHILS % (MANUAL) 4 % (3-5); BASOPHILS % (MANUAL) 0 % (0-2); EOSINOPHILS % (MANUAL) 0 % (0-6); LYMPHOCYTES % (MANUAL) 9 % (13-45); TOTAL CELLS COUNTED 100
[2016-08-23 05:40] LABS: POIKILOCYTOSIS SLIGHT; TOXIC GRANULATION SLIGHT
--- NOTE | 2016-08-23 06:41 | Delivery Summary ---
Del Sum A-C Datetime Report Generated by CPN: 08/23/2016 06:41 DELIVERY PERSONNEL DELIVERY PERSONNEL: [phone] Delivery Doctor:: Bucky Handley MD Labor and Delivery Nurse:: Tammy Murcia RN Staff Nuclear Medicine Technologist/[employer] OFFICER: Aubree Owens, ST MATERNAL INFORMATION Delivery Anesthesia: Local Medications After Delivery: Pitocin Bolus-Please Comment; Pitocin Drip 20 Units/1000ml NSS Estimated Blood Loss (ml): 200 Maternal Complications: Precipitous Labor (<3hrs) LABOR SUMMARY EDC: 09/01/2016 00:00 No. Babies in Womb: 1 Attempted: No Labor Anesthesia: None LABOR INFORMATION Reason for Induction: Not Applicable Onset of Labor: 08/23/2016 01:30 Complete Dilatation: 08/23/2016 03:21 Group B Beta Strep: negative Steroids Given: None Reason Steroids Not Administered: Not Applicable MEMBRANES Membranes Rupture Method: Spontaneous Rupture of Membranes: 08/23/2016 02:30 Length of Rupture (hr): 1.28 Amniotic Fluid Color: Clear Amniotic Fluid Amount: Moderate Amniotic Fluid Odor: Normal STAGES OF LABOR Stage 1 hr: 1 Stage 1 min: 51 Stage 2 hr: 0 Stage 2 min: 26 Stage 3 hr: 0 Stage 3 min: 4 Total Time in Labor hr: 2 Total Time in Labor min: 21 VAGINAL DELIVERY Episiotomy: None Laceration Extension: Second Degree Laceration Type: Perineal Laceration Repair: Yes Laceration Repair Note: repair of perineum with 3-0 chromic in usual fashion Sponge Count Correct: Yes; Vaginal Sweep Performed Sharps Count Correct: Yes BABY A INFORMATION Delivery Date/Time: 08/23/2016 03:47 Method of Delivery: Vaginal Born in Route : No : N/A Forceps: N/A Vacuum Extraction: N/A Shoulder Dystocia : No PRESENTATION/POSITION BABY A Presentation: Cephalic Cephalic Presentation: Vertex Vertex Position: Right Occipital Anterior Breech Presentation: N/A PLACENTA INFORMATION BABY A Placenta Delivery Time : 08/23/2016 03:51 Placenta Method of Delivery: Spontaneous Placenta Status: Delivered SCORES BABY A Heart Rate 1 min: >100 bpm Resp Effort 1 min: Good Cry Reflex Irritability 1 min: Cough or Sneeze or Pulls Away Muscle Tone 1 min: Active Motion Color 1 min: Body Farmer, Extremities Blue SCORE 1 MIN: 9 Heart Rate 5 min: >100 bpm Resp Effort 5 min: Good Cry Reflex Irritability 5 min: Cough or Sneeze or Pulls Away Muscle Tone 5 min: Active Motion Color 5 min: Body Farmer, Extremities Blue SCORE 5 MIN: 9 INFANT INFORMATION BABY A Gestational Age at Delivery: 38.5 Gestational Status: Early Term- 37- 38.6 Weeks Outcome : Liveborn Condition : Stable Sex: Female IDENTIFICATION BABY A Verification Date/Time: 08/23/2016 06:30 ID Band Number: [id number] Mother's Name Verified: Yes Infant RN Verifying Infant: B Twin RN Additional Verifying Personnel: B Ring, RN WEIGHT/LENGTH BABY A Infant Birthweight (gm): 3330 Weight (lb): 7 Weight (oz): 5 Length (in): 18.50 Infant Length (cm): 46.99 CORD INFORMATION BABY A No. Cord Vessels: 3 Nuchal Cord : N/A Cord Blood Taken: Yes-For Storage (Mom's Blood type +) Suction: Mouth; Nose ASSESSMENT BABY A Complications: None Physical Findings at Delivery: Within Normal Limits Infant Respirations: Appears Normal Skin to Skin: Yes Skin to Skin Time (min): 30 Aircraft Load Controller/ALS Called : No Care By: Go Sky RN , Sai Murcia RN Transferred To: Remains with Mother SIGNATURES Signature: with User ID: [email or web address]
--- NOTE | 2016-08-23 07:03 | Admission Physical ---
Datetime Report Generated by CPN: 08/23/2016 07:02 CURRENT ADMISSION Hx Assessment: The History has been Reviewed and is Current Chief Complaint: Uterine Contractions Chief Complaint: Other Indication for Induction: Not Applicable Admit Impression- Other: gastroenteritis Admit Plan: Admit to Unit; Initiate Labor Protocol Admit Plan: Observation/Evaluation ALLERGIES Medication Allergies: No Medication Allergies: No Known Allergies (07/05/2016) Latex: No Latex Allergies Food Allergies: none Environmental Allergies: none OBSTETRICAL HISTORY EDC: 09/01/2016 00:00 : 1 Para: 0 Term: 0 : 0 SAB: 0 IAB: 0 Ectopic: 0 Livin Cesareans: 0 VBACs: 0 Multiple Births: 0 Gestational Diabetes: No Rh Sensitization: No Incompetent Cervix: No ELZA: No Infertility: No ART Treatment: No Uterine Anomaly: No IUGR: No Hx Previous C/S: No Macrosomia: No Hx Loss/Stillborn: No PIH: No Hx : No Placenta Previa/Abruption: No Depression/PP Depression: No PTL/PROM: No Post Hemorrhage: No Current Procedures: Ultrasound Obstetrical History Comments: G1: current SEE RECORDS Alcohol: No Marijuana : No Cocaine: No Other Illicit Drugs: No Cigarettes: Former Smoker. [id number] MEDICAL HISTORY Diabetes: No Blood Transfusion: No Pulmonary Disease (Asthma, TB): No Breast Disease: No Hypertension: No Community Program Assistant Surgery: No Heart Disease: No Hosp/Surgery: No Autoimmune Disorder: No Anesthetic Complications: No Kidney Disease: No Abnormal Pap Smear: No Neuro/Epilepsy: No Psychiatric Disorders: No Other Medical Diseases: No Hepatitis/Liver Disease: No Significant Family History: No Varicosities/Phlebitis: No Trauma/Violence : No Thyroid Dysfunction: No INFECTIOUS HISTORY Gonorrhea: No Genital Herpes: No Chlamydia: No Tuberculosis: No Syphilis: No Hepatitis: No HIV/AIDS Exposure: No Rash or Viral Illness: No HPV: No Infectious History Comments: denies PHYSICAL EXAM General: Normal General: Abnormal HEENT: Normal Neurologic: Normal Thyroid: Normal Heart: Normal Heart: Normal Lungs: Normal Breast: Deferred Back: Normal Back: Normal Abdomen: Normal Abdomen: Abnormal Genitourinary Exam: Normal Extremities: Normal Extremities: Normal DTRs: Normal Pelvic Type: Adequate Physical Exam Comments: Pt with n/v d for several hours. Has cramping before vomitng and diarrhea. Vital Signs: Reviewed VAGINAL EXAM Contraction Comments: none FETUS A EGA: 38.5 EGA: 31.5 FHR Category: Category I Admit Comment: delivered Admit Comment: Obs for ivf and antiemetics/supportive care. PLANS FOR LABOR AND DELIVERY Labor and Delivery: None Pain Management: Epidural Feeding Preference: Both Benefit of Breast Feed Discussed: Yes Circumcision: N/A INFORMED CONSENT Signature: with User ID: [email or web address] Signature: with User ID: [email or web address] : with User ID: [email or web address]
[2016-08-23] MEDS: IBUPROFEN 800 MG TABLET PO SCH ×3 (07:58→21:04)
--- NOTE | 2016-08-23 08:49 | PDOC PROGRESS REPORT ---
Subjective-OB Subjective: Post Delivery Day: 21 year old. Denies any needs at this time Sitting up in bed, family in room, no c/o, plans to breastfed, female infant, eating, voiding Physical Exam (OB) Vital Signs: Temp Pulse Resp BP Pulse Ox 98.5 F 70 16 118/65 96 08/23/16 06:54 08/23/16 06:54 08/23/16 06:54 08/23/16 06:54 08/23/16 06:54 Objective-Diagnostic Laboratory: 08/23/16 04:33 08/23/16 08/23/16 04:33 04:33 WBC 15.6 H RBC 3.63 L Hgb 11.3 L Hct 34.5 L MCV 95 MCH 31.2 MCHC 32.8 RDW 13.3 Plt Count 191 Seg Neutrophils % Not Reportable Lymphocytes % Not Reportable Monocytes % Not Reportable Eosinophils % Not Reportable Basophils % Not Reportable Absolute Neutrophils Not Reportable Absolute Lymphocytes Not Reportable Absolute Monocytes Not Reportable Absolute Eosinophils Not Reportable Absolute Basophils Not Reportable Blood Type A POSITIVE Antibody Screen NEGATIVE Assessment and Plan(PN) - Assessment and Plan (1) Delivery normal Is this a current diagnosis for this admission?: Yes - Time Spent with Patient Time with patient: Less than 15 minutes Medications reviewed and adjusted accordingly: Yes - Disposition Anticipated Discharge: Home Within: within 24 hours
[2016-08-23] MEDS: SENNOSIDES/DOCUSATE 8.6-50 MG 1 EACH TABLET PO SCH (10:01)
[2016-08-23] MEDS: DOCUSATE SODIUM 100 MG CAPSULE PO SCH ×2 (10:01→17:22)
[2016-08-23] MEDS: FERROUS SULFATE 325 MG TABLET PO SCH ×2 (10:01→17:22)
[2016-08-23] MEDS: FAMOTIDINE 20 MG TABLET PO SCH ×2 (10:01→21:04)
[2016-08-23] MEDS: PRENATAL VITAMIN W-O CA NO5/FE FUMARATE/FA CAPSULE PO SCH (10:02)
[2016-08-24] MEDS: IBUPROFEN 800 MG TABLET PO SCH ×3 (05:33→21:17)
[2016-08-24] MEDS: SENNOSIDES/DOCUSATE 8.6-50 MG 1 EACH TABLET PO SCH (10:28)
[2016-08-24] MEDS: DOCUSATE SODIUM 100 MG CAPSULE PO SCH ×2 (10:28→17:31)
[2016-08-24] MEDS: FAMOTIDINE 20 MG TABLET PO SCH ×2 (10:28→21:18)
[2016-08-24] MEDS: PRENATAL VITAMIN W-O CA NO5/FE FUMARATE/FA CAPSULE PO SCH (10:28)
[2016-08-24] MEDS: FERROUS SULFATE 325 MG TABLET PO SCH ×2 (10:28→17:31)
--- NOTE | 2016-08-24 12:39 | PDOC PROGRESS REPORT ---
Subjective-OB Subjective: Post Delivery Day: 21 year old. Denies any needs at this time doing well reports without issue nipples reddened and bruised applied colostrum to nipples and advised pt to air dry advised pt to request help with next session [id number] mild lochia no clots Physical Exam (OB) Vital Signs: Temp Pulse Resp BP Pulse Ox 97.9 F 79 16 123/67 95 08/23/16 19:18 08/23/16 19:18 08/23/16 19:18 08/23/16 19:18 08/23/16 19:18 - Abdomen Hernia Present: No Objective-Diagnostic Laboratory: 08/23/16 04:33 Assessment and Plan(PN) - Time Spent with Patient Medications reviewed and adjusted accordingly: Yes - Disposition Anticipated Discharge: Home
[2016-08-25] MEDS: IBUPROFEN 800 MG TABLET PO SCH (05:27)
[2016-08-25 09:47] LABS: HEMATOCRIT 37.2 % (36.0-47.0); HEMOGLOBIN 12.4 g/dL (12.0-15.5); MEAN CORPUSCULAR HEMOGLOBIN 31.5 pg (27.0-33.4); MEAN CORPUSCULAR HGB CONC 33.3 g/dL (32.0-36.0); MEAN CORPUSCULAR VOLUME 95 fl (80-97); RED BLOOD COUNT 3.93 10^6/uL (3.72-5.28); RED CELL DISTRIBUTION WIDTH 14.2 % (11.5-14.0); WHITE BLOOD COUNT 10.1 10^3/uL (4.0-10.5)
[2016-08-25] MEDS: FAMOTIDINE 20 MG TABLET PO SCH (10:03)
[2016-08-25] MEDS: FERROUS SULFATE 325 MG TABLET PO SCH (10:03)
[2016-08-25] MEDS: SENNOSIDES/DOCUSATE 8.6-50 MG 1 EACH TABLET PO SCH (10:03)
[2016-08-25] MEDS: DOCUSATE SODIUM 100 MG CAPSULE PO SCH (10:04)
[2016-08-25] MEDS: PRENATAL VITAMIN W-O CA NO5/FE FUMARATE/FA CAPSULE PO SCH (10:04)
--- NOTE | 2016-08-25 10:21 | PDOC DISCHARGE SUMMARY ---
Final Diagnosis Discharge Date: 08/25/16 - Final Diagnosis (1) Delivery normal Is this a current diagnosis for this admission?: Yes Discharge Data - Discharge Medication Home Medications: Docusate Sodium [Colace 100 mg Capsule] 100 mg PO BID #60 capsule 08/25/16 Ibuprofen [Motrin 800 mg Tablet] 800 mg PO Q8 #60 tablet 08/25/16 Pnv W-O Ca No5/Fe Fumarate/FA [-U Multiple Vitamin Capsule] 1 cap PO DAILY #30 capsule 08/25/16 Gestational Age: 38.5 Reason(s) for Admission: Onset of Labor Procedures: NST Intrapartum Procedure(s): Spontaneous Vaginal Delivery Complication(s): Laceration-Perineal Laceration-Degree: 2nd - [place] Data Baby 1 at 1 minute: 9 at 5 minutes: 9 Weight: 3330 kg Home with Mother: Yes Complications: No - Diagnosis Test Laboratory: Temp Pulse Resp BP Pulse Ox 98.3 F 61 16 111/59 L 98 08/25/16 08:03 08/25/16 08:03 08/25/16 08:03 08/25/16 08:03 08/25/16 08:03 08/23/16 08/25/16 04:33 09:38 RBC 3.63 L 3.93 Hgb 11.3 L 12.4 Hct 34.5 L 37.2 - Discharge information/Instructions Discharge Activity: Activity As Tolerated, Pelvic Rest, No tub bath Discharge Diet: Regular Disposition: HOME, SELF-CARE Follow up with: [facility] in: 4, Weeks
[2016-08-25 10:55] VITALS: BP 116/59
== END 2016-08-25 12:00 | disposition home or self-care (01) | DRG 775 ==
LOC: LC 03:04 → LR 03:30 → 2N 07:01
PROVIDERS: ADMIT Obstetrics & Gynecology; ATTEND Obstetrics & Gynecology
PROC: 10E0XZZ Delivery of Products of Conception, External Approach (ICD-10-PCS; principal; 2016-08-23)
PROC: 0KQM0ZZ Repair Perineum Muscle, Open Approach (ICD-10-PCS; 2016-08-23)
PROC: 4A1HXCZ Monitoring of Products of Conception, Cardiac Rate, External Approach (ICD-10-PCS; 2016-08-23)
DX: O62.3 Precipitate labor (principal); O70.1 Second degree perineal laceration during delivery; Z37.0 Single live birth; Z3A.38 38 weeks gestation of pregnancy; Z87.891 Personal history of nicotine dependence
CPT/HCPCS: 36415; 85025; 85027; 86592; 86850; 86900; 86901; J3490

== ENCOUNTER 2016-09-23 01:58 | Inpatient (IN) | payer OTHER ==
[2016-09-23 02:59] LABS: ABSOLUTE BASOPHILS # (AUTO) 0.1 10^3/uL (0.0-0.2); ABSOLUTE EOSINOPHILS # (AUTO) 0.4 10^3/uL (0.0-0.6); ABSOLUTE LYMPHOCYTES (AUTO) 2.6 10^3/uL (0.5-4.7); ABSOLUTE MONOCYTES (AUTO) 0.6 10^3/uL (0.1-1.4); ABSOLUTE NEUT (AUTO) 4.4 10^3/uL (1.7-8.2); BASOPHILS % (AUTO) 0.6 % (0-2); EOSINOPHILS % (AUTO) 5.4 % (0-6); HEMOGLOBIN 12.2 g/dL (12.0-15.5); HGB HCT DIFFERENCE -0.4; LYMPHOCYTES % (AUTO) 31.9 % (13-45); MEAN CORPUSCULAR HEMOGLOBIN 30.8 pg (27.0-33.4); MEAN CORPUSCULAR HGB CONC 32.9 g/dL (32.0-36.0); MEAN CORPUSCULAR VOLUME 94 fl (80-97); MONOCYTES % (AUTO) 6.9 % (3-13); RED BLOOD COUNT 3.95 10^6/uL (3.72-5.28); RED CELL DISTRIBUTION WIDTH 12.7 % (11.5-14.0); SEGMENTED NEUTROPHILS % (AUTO) 55.2 % (42-78); WHITE BLOOD COUNT 8.1 10^3/uL (4.0-10.5)
[2016-09-23 03:02] LABS: APPEARANCE,URINE SLIGHTLY-CLOUDY; BILIRUBIN,URINE NEGATIVE (NEGATIVE); GLUCOSE, URINE NEGATIVE (NEGATIVE); KETONES,URINE NEGATIVE (NEGATIVE); LEUKOCYTE ESTERASE,URINE SMALL (NEGATIVE); NITRITE,URINE NEGATIVE (NEGATIVE); PROTEIN,URINE NEGATIVE (NEGATIVE); UROBILINOGEN,URINE NEGATIVE mg/dL (<2.0)
[2016-09-23 03:09] LABS: ALANINE AMINOTRANSFERASE 30 U/L (9-52); ALBUMIN 4.3 g/dL (3.5-5.0); ALKALINE PHOSPHATASE 97 U/L (38-126); ANION GAP 11 (5-19); ASPARTATE AMINO TRANSFERASE 23 U/L (14-36); BILIRUBIN,DIRECT 0.2 mg/dL (0.0-0.4); BILIRUBIN,TOTAL 0.4 mg/dL (0.2-1.3); BLOOD UREA NITROGEN 18 mg/dL (7-20); CALCIUM 9.6 mg/dL (8.4-10.2); CARBON DIOXIDE 24 mmol/L (22-30); CHLORIDE 107 mmol/L (98-107); CREATININE RESULT 0.69 mg/dL (0.52-1.25); GLUCOSE 102 mg/dL (75-110); POTASSIUM 4.1 mmol/L (3.6-5.0); SODIUM 141.6 mmol/L (137-145); TOTAL PROTEIN 7.4 g/dL (6.3-8.2)
[2016-09-23 03:30] LABS: LIPASE 4940.2 U/L (23-300)
--- NOTE | 2016-09-23 04:40 | ER Document Report ---
ED GI/ - General Chief Complaint: Abdominal Pain Stated Complaint: ABDOMINAL PAIN Time Seen by Provider: 09/23/16 03:24 Mode of Arrival: Ambulatory Information source: Patient Notes: 22-year-old female presents to ED for upper abdominal pain. She states she has a history of gallstones or pancreatitis. The upper abdominal pain started a couple hours ago tonight. She did have a dinner of [employer]. Delivered her last child 4 weeks ago TRAVEL OUTSIDE OF THE [place] IN LAST 30 DAYS: No - HPI Patient complains to provider of: Abdominal pain Onset: This evening Timing/Duration: Gradual, Persistent Quality of pain: Burning, Sharp Severity at maximum: Moderate Severity in ED: Moderate Pain Level: 4 Location: Epigastric, RUQ Vaginal bleeding (Compared to normal period): None Associated symptoms: Nausea Exacerbated by: Movement, Walking Relieved by: Denies Similar symptoms previously: Yes Recently seen / treated by doctor: Yes - Related Data Allergies/Adverse Reactions: No Known Allergies Allergy (Verified 07/05/16 04:14) Past Medical History - General Information source: Patient - Social History Smoking Status: Former Smoker Cigarette use (# per day): No Chew tobacco use (# tins/day): No Frequency of alcohol use: Social Drug Abuse: None Lives with: Family Family History: CAD, Hyperlipidemia, Hypertension - Past Medical History Cardiac Medical History: Reports: None Pulmonary Medical History: Reports: None EENT Medical History: Reports: None Neurological Medical History: Reports: None Endocrine Medical History: Reports: None Renal/ Medical History: Reports: None Malignancy Medical History: Reports: None GI Medical History: Reports: Hx Gastritis, Hx Gastroesophageal Reflux Disease, Hx Colonoscopy, Hx Endoscopy, Other - Pancreatitis and gallstones esophageal varices Musculoskeltal Medical History: Reports None Skin Medical History: Reports None Psychiatric Medical History: Reports: None Traumatic Medical History: Reports: None Infectious Medical History: Reports: None Surgical Hx: Negative Past Surgical History: Reports: None - Immunizations Hx Diphtheria, Pertussis, Tetanus Vaccination: Yes Review of Systems - Review of Systems Constitutional: No symptoms reported EENT: No symptoms reported Cardiovascular: No symptoms reported Respiratory: No symptoms reported Gastrointestinal: Abdominal pain, Nausea Genitourinary: No symptoms reported Female Genitourinary: No symptoms reported Musculoskeletal: No symptoms reported Skin: No symptoms reported Hematologic/Lymphatic: No symptoms reported Neurological/Psychological: No symptoms reported -: Yes All other systems reviewed and negative Physical Exam - Vital signs Vitals: Temp Pulse Resp BP Pulse Ox 97.5 F 76 16 119/70 99 09/23/16 02:07 09/23/16 02:07 09/23/16 02:07 09/23/16 02:07 09/23/16 02:07 Interpretation: Normal - General General appearance: Appears well, Alert - HEENT Head: Normocephalic, Atraumatic Eyes: Normal Pupils: PERRL - Respiratory Respiratory status: No respiratory distress Chest status: Nontender Breath sounds: Normal Chest palpation: Normal - Cardiovascular Rhythm: Regular Heart sounds: Normal auscultation Murmur: No - Abdominal Inspection: Normal Distension: No distension Bowel sounds: Hyperactive Tenderness: Tender, Marcelino's sign Organomegaly: No organomegaly - Back Back: Normal, Nontender - Extremities General upper extremity: Normal inspection, Nontender, Normal color, Normal ROM , Normal temperature General lower extremity: Normal inspection, Nontender, Normal color, Normal ROM , Normal temperature, Normal weight bearing. No: Argentina's sign - Neurological Neuro grossly intact: Yes Cognition: Normal Orientation: AAOx4 [place] Coma Scale Eye Opening: Spontaneous [place] Coma Scale Verbal: Oriented Charissa Coma Scale Motor: Obeys Commands [place] Coma Scale Total: 15 Speech: Normal Motor strength normal: LUE, RUE, LLE, RLE Sensory: Normal - Psychological Associated symptoms: Normal affect, Normal mood - Skin Skin Temperature: Warm Skin Moisture: Dry Skin Color: Normal Course - Re-evaluation Re-evalutation: 09/23/16 08:[address] Blackwell for admission for pancreatitis, stated that I needed to talk with Dr. Bull the earth science technical officer to see if the patient needed an ERCP or if she needed to be transferred. Explained the liver enzymes and CBC to Dr. Bull who stated that at this time the patient does not need a ERCP but does need to be admitted for the pancreatitis. I recall Dr. Blackwell, stated that I needed to speak with Dr. Liu for the admission of this patient. I contacted Dr. Liu will be admitted to the medical floor for pancreatitis. Patient has been informed of the results of the CT ultrasound and blood work. Patient has been getting IV fluids. Patient has been kept n.p.o. - Vital Signs Vital signs: Temp Pulse Resp BP Pulse Ox 97.7 F 58 L 16 101/59 L 98 09/23/16 07:58 09/23/16 07:58 09/23/16 07:58 09/23/16 07:58 09/23/16 07:58 - Laboratory Result Diagrams: 09/23/16 02:40 09/23/16 02:40 Laboratory results interpreted by me: 09/23/16 09/23/16 02:40 02:40 Lipase 4940.2 H Urine Blood SMALL H Ur Leukocyte Esterase SMALL H - Diagnostic Test Radiology reviewed: Image reviewed, Reports reviewed Discharge - Discharge Clinical Impression: Pancreatitis Qualifiers: Chronicity: acute Pancreatitis type: biliary Acute pancreatitis complication: unspecified Qualified Code(s): K85.10 - Biliary acute pancreatitis without necrosis or infection Admitting Provider: Hospitalist - [place] Unit Admitted: Medical Floor Referrals: ROBERT LEES MD [Primary Care Provider] - Follow up as needed
--- NOTE | 2016-09-23 05:49 | RADIOLOGY REPORT (SQ) ---
EXAM DESCRIPTION: U/S ABDOMEN LTD W/DOPPLER COMPLETED DATE/TIME: 09/23/2016 5:36 am REASON FOR STUDY: upper abdominal pain COMPARISON: None. TECHNIQUE: Dynamic and static grayscale images acquired of the abdomen and recorded on PACS. Additio nal selected color Doppler and spectral images recorded. LIMITATIONS: None. FINDINGS: PANCREAS: No masses. Visualized pancreatic duct normal caliber. LIVER: No masses. Echotexture normal. LIVER VASCULATURE: Normal directional flow of the main portal vein and hepatic veins. GALLBLADDER: Gallstone(s). No pericholecystic fluid. No wall thickening. ULTRASOUND-DETECTED CRUZ'S SIGN: Negative. INTRAHEPATIC DUCTS AND COMMON DUCT: CBD and intrahepatic ducts normal caliber. No filling defects. INFERIOR VENA CAVA: Normal flow. AORTA: No aneurysm. RIGHT KIDNEY: Normal size. Normal echogenicity. No solid or suspicious masses. No hydronephrosis. No calcifications. PERITONEAL AND RIGHT PLEURAL SPACE: No ascites or effusions. OTHER: No other significant findings. IMPRESSION: GALLSTONES. NO OTHER SIGNIFICANT FINDINGS. TECHNICAL DOCUMENTATION: JOB ID: [id number] [email or web address] All Rights Reserved
[2016-09-23] MEDS ORDERED: NORMAL SALINE 1000 ML 1,000 ML IV ONE (05:52)
[2016-09-23] MEDS ORDERED: NORMAL SALINE 1000 ML 1,000 ML IV PRN ×2 (05:53→08:36)
--- NOTE | 2016-09-23 06:53 | RADIOLOGY REPORT (SQ) ---
EXAM DESCRIPTION: CT ABD/PELVIS WITH IV ONLY COMPLETED DATE/TIME: 09/23/2016 6:41 am REASON FOR STUDY: abdominal pain elevated lipase COMPARISON: None. TECHNIQUE: CT scan of the abdomen and pelvis performed using helical scanning technique with dynamic intravenous contrast injection. No oral contrast. Images reviewed with lung, soft tissue, and bone windows. Reconstructed coronal and sagittal MPR images reviewed. Delayed images for evaluation of the urinary system also acquired. All images stored on PACS. All CT scanners at this facility use dose modulation, iterative reconstruction, and/or weight based d osing when appropriate to reduce radiation dose to as low as reasonably achievable (ALARA). [facility]: Dose Right [facility]: CareDose [facility]: Dose Right [facility]: Teradose 4D [facility]: TraveDoc CONTRAST TYPE AND DOSE: contrast/concentration: Isovue 370.00 mg/ml; Total Contrast Delivered: 67.0 ml; Total Saline Delivered: 65.0 ml RENAL FUNCTION: None required. The patient is less than 50 years old. RADIATION DOSE: Up-to-date CT equipment and radiation dose reduction techniques were employed. CTDIv ol: 5.5 mGy. DLP: 625 mGy-cm.. LIMITATIONS: None. FINDINGS: LOWER CHEST: No significant findings. No nodules or infiltrates. LIVER: Normal size. No masses. No dilated ducts. SPLEEN: Normal size. No focal lesions. PANCREAS: No masses. No significant calcifications. No adjacent inflammation or peripancreatic fluid collections. Pancreatic duct not dilated. GALLBLADDER: No identified stones by CT criteria. No inflammatory changes to suggest cholecystitis. ADRENAL GLANDS: No significant masses or asymmetry. RIGHT KIDNEY AND URETER: No solid masses. No significant calcifications. No hydronephrosis or hyd roureter. LEFT KIDNEY AND URETER: No solid masses. No significant calcifications. No hydronephrosis or hydr oureter. AORTA AND VESSELS: No aneurysm. No dissection. Renal arteries, SMA, celiac without stenosis. RETROPERITONEUM: No retroperitoneal adenopathy, hemorrhage or masses. BOWEL AND PERITONEAL CAVITY: No masses or inflammatory changes. No free fluid or peritoneal masses. APPENDIX: Normal. PELVIS: No mass. No free fluid. Normal bladder. ABDOMINAL WALL: No masses. No hernias. BONES: No significant or acute findings. OTHER: No other significant finding. IMPRESSION: NO SIGNIFICANT OR ACUTE FINDING IN THE ABDOMEN OR PELVIS ON CT SCAN WITH IV CONTRAST. TECHNICAL DOCUMENTATION: JOB ID: [id number] Quality ID # [id number]: Final reports with documentation of one or more dose reduction techniques (e.g., Au tomated exposure control, adjustment of the mA and/or kV according to patient size, use of iterative reconstruction technique) 2010 [email or web address]- All Rights Reserved
[2016-09-23] MEDS ORDERED: ACETAMINOPHEN 325 MG TABLET PO PRN (08:36)
[2016-09-23] MEDS ORDERED: ONDANSETRON HCL INJ/PF 4 MG/2 ML SDV IV PRN (08:36)
[2016-09-23] MEDS ORDERED: MORPHINE SULFATE 10 MG/ML INJ IV PRN (08:39)
--- NOTE | 2016-09-23 09:36 | PDOC CONSULTATION ---
Consultation Consult Date: 09/23/16 Attending physician:: DIAZ TEJADA Consult reason:: Pancreatitis History of Present Illness Admission Date/PCP: 09/23/16 08:36 ROBERT LEES MD History of Present Illness: JOCELYN CANTU is a 21 year old female I was contacted on this patient via the emergency room. There was a question of whether the patient needed to be admitted. She presented to the emergency room with abdominal pain. CT scan was negative for any biliary dilatation. Her LFTs are normal. She apparently may have had a history of previous gallstones. She does have an elevated lipase. She does not have an elevated white count. She denies any blood in her stools. Hemoglobin is normal. Usually has this issue intermittently. She denies any early satiety. At this point given her normal LFTs along with normal imaging studies, she may need to be admitted but does not require urgent ERCP. Past Medical History Cardiac Medical History: Reports: None Pulmonary Medical History: Reports: None EENT Medical History: Reports: None Neurological Medical History: Reports: None Endocrine Medical History: Reports: None Renal/ Medical History: Reports: None Malignancy Medical History: Reports: None GI Medical History: Reports: Gastroesophageal Reflux Disease, Other - Pancreatitis and gallstones esophageal varices Musculoskeltal Medical History: Reports: None Skin Medical History: Reports: None Psychiatric Medical History: Reports: None Denies: Depression Traumatic Medical History: Reports: None Infectious Medical History: Reports: None Past Surgical History Past Surgical History: Reports: None Social History Lives with: Family Smoking Status: Former Smoker Frequency of Alcohol Use: None Hx Recreational Drug Use: No Drugs: None Hx Prescription Drug Abuse: No Family History Family History: CAD, Hyperlipidemia, Hypertension Parental Family History Reviewed: Yes Children Family History Reviewed: Unknown Sibling(s) Family History Reviewed.: Unknown Medication/Allergy Home Medications: Docusate Sodium [Colace 100 mg Capsule] 100 mg PO BID #60 capsule 08/25/16 Ibuprofen [Motrin 800 mg Tablet] 800 mg PO Q8 #60 tablet 08/25/16 Pnv W-O Ca No5/Fe Fumarate/FA [-U Multiple Vitamin Capsule] 1 cap PO DAILY #30 capsule 08/25/16 Allergies/Adverse Reactions: No Known Allergies Allergy (Verified 07/05/16 04:14) Review of Systems Constitutional: ABSENT: fever(s), headache(s), night sweats, weakness Eyes: ABSENT: visual disturbances Ears: ABSENT: hearing changes Nose, Mouth, and Throat: ABSENT: mouth pain, sore throat Cardiovascular: ABSENT: edema, orthropnea, palpitations Respiratory: ABSENT: dyspnea, hemoptysis Gastrointestinal: ABSENT: diarrhea, dysphagia, melena, nausea, vomiting Genitourinary: ABSENT: dysuria, hematuria Musculoskeletal: ABSENT: deformity, joint swelling Neurological: ABSENT: syncope, tingling, tremor(s), vertigo Endocrine: ABSENT: polydipsia, polyphagia, polyuria Hematologic/Lymphatic: ABSENT: easy bruising, lymphadenopathy Physical Exam Vital Signs: Temp Pulse Resp BP Pulse Ox 97.7 F 58 L 16 101/59 L 98 09/23/16 07:58 09/23/16 07:58 09/23/16 07:58 09/23/16 07:58 09/23/16 07:58 General appearance: PRESENT: mild distress, well-developed, well-nourished Head exam: PRESENT: atraumatic, normocephalic Eye exam: PRESENT: EOMI, PERRLA. ABSENT: nystagmus, periorbital swelling, scleral icterus Mouth exam: PRESENT: moist, neck supple Throat exam: ABSENT: tonsillar exudate, tonsillogmegaly Neck exam: ABSENT: meningismus, tenderness, thyromegaly Respiratory exam: PRESENT: symmetrical, unlabored. ABSENT: chest wall tenderness, tachypnea Cardiovascular exam: PRESENT: RRR, +S1, +S2 Pulses: PRESENT: normal carotid pulses GI/Abdominal exam: PRESENT: soft. ABSENT: rebound, rigid, tenderness Extremities exam: ABSENT: joint swelling Musculoskeletal exam: PRESENT: full ROM Neurological exam: PRESENT: oriented to time, oriented to situation, reflexes normal, CN II-XII grossly intact Psychiatric exam: PRESENT: appropriate affect Skin exam: PRESENT: normal color. ABSENT: mottled, pallor, petechiae, urticaria , vesicles Results Impressions: Abdomen Ultrasound 09/23/16 04:20 IMPRESSION: GALLSTONES. NO OTHER SIGNIFICANT FINDINGS. Abdomen/Pelvis CT 09/23/16 05:51 IMPRESSION: NO SIGNIFICANT OR ACUTE FINDING IN THE ABDOMEN OR PELVIS ON CT SCAN WITH IV CONTRAST. Assessment & Plan - Diagnosis (1) Pancreatitis Qualifiers: Chronicity: acute Pancreatitis type: biliary Plan: Normal LFTs, normal imaging, normal white blood cell count. Does not require urgent ERCP. Etiology for pancreatitis needs to be worked up. We will check triglyceride level, It was indeed due to gallstones then may need prophylactic cholecystectomy. Question if surgery needs to be involved. Conservative management at this point in time. - Time Time Spent: 30 to 50 Minutes
[2016-09-23] MEDS: FAMOTIDINE INJ/PF 20 MG/2 ML SDV IV SCH ×2 (11:10→22:02)
--- NOTE | 2016-09-23 11:46 | PDOC H&P ---
History of Present Illness Admission Date/PCP: 09/23/16 08:36 ROBERT LEES MD History of Present Illness: JOCELYN CANTU is a 21 year old female who presented to the ED this morning with epigastric pain and nausea. She has a history of gallstone pancreatitis 3 months ago when she was 8 months , 3 months ago. She states she was told then that she would need to have her gallbladder removed at a later time. She has had no other episodes since then until now. She denies any vomiting or diarrhea. She states she saw.." stones.." in her stool yesterday. This episode of pancreatitis is not as severe as the other episode. She is not nursing at the present time. Her daughter is now 4 weeks old. Past Medical History Cardiac Medical History: Reports: None Pulmonary Medical History: Reports: None EENT Medical History: Reports: None Neurological Medical History: Reports: None Endocrine Medical History: Reports: None Renal/ Medical History: Reports: None Malignancy Medical History: Reports: None GI Medical History: Reports: Gastroesophageal Reflux Disease, Other - Pancreatitis and gallstones esophageal varices Musculoskeltal Medical History: Reports: None Skin Medical History: Reports: None Psychiatric Medical History: Reports: None Denies: Depression Traumatic Medical History: Reports: None Infectious Medical History: Reports: None Past Surgical History Past Surgical History: Reports: None Social History Information Source: Patient Lives with: Family, Spouse/Significant other Smoking Status: Former Smoker Frequency of Alcohol Use: None Hx Recreational Drug Use: No Drugs: None Hx Prescription Drug Abuse: No - Advance Directive Resuscitation Status: Full Code Family History Family History: CAD, Hyperlipidemia, Hypertension Parental Family History Reviewed: Yes Children Family History Reviewed: Yes Sibling(s) Family History Reviewed.: Yes Medication/Allergy Home Medications: No Home Medications 09/23/16 Allergies/Adverse Reactions: No Known Allergies Allergy (Verified 07/05/16 04:14) Review of Systems Constitutional: ABSENT: chills, fever(s), headache(s), weight gain, weight loss Eyes: ABSENT: visual disturbances Ears: ABSENT: hearing changes Cardiovascular: ABSENT: chest pain, dyspnea on exertion, edema, orthropnea, palpitations Respiratory: ABSENT: cough, hemoptysis Gastrointestinal: PRESENT: abdominal pain, nausea Genitourinary: PRESENT: as per HPI Musculoskeletal: ABSENT: joint swelling Integumentary: ABSENT: rash, wounds Neurological: ABSENT: abnormal gait, abnormal speech, confusion, dizziness, focal weakness, syncope Psychiatric: ABSENT: anxiety, depression, homidical ideation, suicidal ideation Endocrine: ABSENT: cold intolerance, heat intolerance, polydipsia, polyuria Hematologic/Lymphatic: ABSENT: easy bleeding, easy bruising Physical Exam Vital Signs: Temp Pulse Resp BP Pulse Ox 97.7 F 58 L 16 101/59 L 98 09/23/16 07:58 09/23/16 07:58 09/23/16 07:58 09/23/16 07:58 09/23/16 07:58 General appearance: PRESENT: no acute distress, well-developed, well-nourished Head exam: PRESENT: atraumatic, normocephalic Eye exam: PRESENT: conjunctiva pink, EOMI, PERRLA. ABSENT: scleral icterus Ear exam: PRESENT: normal external ear exam Mouth exam: PRESENT: moist, tongue midline Neck exam: ABSENT: carotid bruit, JVD, lymphadenopathy, thyromegaly Respiratory exam: PRESENT: clear to auscultation norberto. ABSENT: rales, rhonchi, wheezes Cardiovascular exam: PRESENT: RRR. ABSENT: diastolic murmur, rubs, systolic murmur Pulses: PRESENT: normal dorsalis pedis pul GI/Abdominal exam: PRESENT: normal bowel sounds, soft Rectal exam: PRESENT: deferred Extremities exam: PRESENT: full ROM. ABSENT: calf tenderness, clubbing, pedal edema Neurological exam: PRESENT: alert, awake, oriented to person, oriented to place , oriented to time, oriented to situation, CN II-XII grossly intact. ABSENT: motor sensory deficit Psychiatric exam: PRESENT: appropriate affect, normal mood. ABSENT: homicidal ideation, suicidal ideation Skin exam: PRESENT: dry, intact, warm. ABSENT: cyanosis, rash Results Impressions: Abdomen Ultrasound 09/23/16 04:20 IMPRESSION: GALLSTONES. NO OTHER SIGNIFICANT FINDINGS. Abdomen/Pelvis CT 09/23/16 05:51 IMPRESSION: NO SIGNIFICANT OR ACUTE FINDING IN THE ABDOMEN OR PELVIS ON CT SCAN WITH IV CONTRAST. Assessment & Plan - Diagnosis (1) Pancreatitis Qualifiers: Chronicity: acute Pancreatitis type: unspecified pancreatitis type Acute pancreatitis complication: uninfected necrosis Qualified Code(s): K85.91 - Acute pancreatitis with uninfected necrosis, unspecified Is this a current diagnosis for this admission?: YesPlan: Will keep patient NPO today. Fluid resuscitation, prn dilaudid and zofran (2) Cholelithiasis affecting in third trimester, antepartum Is this a current diagnosis for this admission?: YesPlan: Patient will need surgical follow up post discharge - Time Time Spent: 50 to 70 Minutes Critical Time spent with patient: 25-34 minutes Medications reviewed and adjusted accordingly: Yes
[2016-09-23] MEDS: HYDROMORPHONE HCL INJ/PF 2 MG/ML AMPULE IV PRN (11:55)
[2016-09-24] MEDS: HYDROMORPHONE HCL INJ/PF 2 MG/ML AMPULE IV PRN (00:12)
[2016-09-24 06:29] LABS: ALANINE AMINOTRANSFERASE 26 U/L (9-52); ALBUMIN 3.4 g/dL (3.5-5.0); ALKALINE PHOSPHATASE 92 U/L (38-126); ANION GAP 7 (5-19); ASPARTATE AMINO TRANSFERASE 20 U/L (14-36); BILIRUBIN,DIRECT 0.2 mg/dL (0.0-0.4); BILIRUBIN,TOTAL 0.6 mg/dL (0.2-1.3); BLOOD UREA NITROGEN 7 mg/dL (7-20); CALCIUM 9.2 mg/dL (8.4-10.2); CARBON DIOXIDE 23 mmol/L (22-30); CHLORIDE 109 mmol/L (98-107); CHOLESTEROL 163.67 mg/dL (0-200); DIRECT LDL 66 mg/dL (<100); Direct HDL 57 mg/dL (>40); GLUCOSE 88 mg/dL (75-110); LIPASE 95.7 U/L (23-300); MAGNESIUM 1.8 mg/dL (1.6-2.3); POTASSIUM 4.3 mmol/L (3.6-5.0); SODIUM 139.4 mmol/L (137-145); TOTAL PROTEIN 6.2 g/dL (6.3-8.2); TRIGLYCERIDES 146 mg/dL (<150); VLDL CHOLESTEROL 29.2 mg/dL (10-31)
[2016-09-24 06:37] LABS: ABSOLUTE BASOPHILS # (AUTO) 0.1 10^3/uL (0.0-0.2); ABSOLUTE EOSINOPHILS # (AUTO) 0.4 10^3/uL (0.0-0.6); ABSOLUTE LYMPHOCYTES (AUTO) 2.3 10^3/uL (0.5-4.7); ABSOLUTE MONOCYTES (AUTO) 0.4 10^3/uL (0.1-1.4); ABSOLUTE NEUT (AUTO) 3.4 10^3/uL (1.7-8.2); BASOPHILS % (AUTO) 0.9 % (0-2); EOSINOPHILS % (AUTO) 6.7 % (0-6); HEMATOCRIT 32.9 % (36.0-47.0); HGB HCT DIFFERENCE 0.1; LYMPHOCYTES % (AUTO) 34.5 % (13-45); MEAN CORPUSCULAR HEMOGLOBIN 31.2 pg (27.0-33.4); MEAN CORPUSCULAR HGB CONC 33.5 g/dL (32.0-36.0); MEAN CORPUSCULAR VOLUME 93 fl (80-97); MONOCYTES % (AUTO) 6.6 % (3-13); RED BLOOD COUNT 3.54 10^6/uL (3.72-5.28); RED CELL DISTRIBUTION WIDTH 13.1 % (11.5-14.0); SEGMENTED NEUTROPHILS % (AUTO) 51.3 % (42-78); WHITE BLOOD COUNT 6.7 10^3/uL (4.0-10.5)
[2016-09-24 08:07] VITALS: BP 109/75
[2016-09-24] MEDS: FAMOTIDINE INJ/PF 20 MG/2 ML SDV IV SCH (09:34)
--- NOTE | 2016-09-24 14:47 | PDOC DISCHARGE SUMMARY ---
General - Admit/Disc Date/PCP Admission Date/Primary Care Provider: 09/23/16 08:36 ROBERT LEES MD Discharge Date: 09/24/16 - Discharge Diagnosis (1) Pancreatitis Is this a current diagnosis for this admission?: YesSummary: Resolved after bowel rest and IV hydration (2) Cholelithiasis affecting in third trimester, antepartum Is this a current diagnosis for this admission?: YesSummary: Patient has had 2 episodes of pancreatitis secondary to gallstones - Additional Information Resuscitation Status: Full Code Discharge Diet: Regular Discharge Activity: Activity As Tolerated Home Medications: Famotidine [Pepcid 20 mg Tablet] 20 mg PO Q12 tablet 09/24/16 History of Present Illness Patient complains of: Abdominal pain and nausea History of Present Illness: JOCELYN CANTU is a 21 year old female who presented to the ED this morning with epigastric pain and nausea. She has a history of gallstone pancreatitis 3 months ago when she was 8 months , 3 months ago. She states she was told then that she would need to have her gallbladder removed at a later time. She has had no other episodes since then until now. She denies any vomiting or diarrhea. She states she saw.." stones.." in her stool yesterday. This episode of pancreatitis is not as severe as the other episode. She is not nursing at the present time. Her daughter is now 4 weeks old. Hospital Course Hospital Course: Patient was admitted to the medical floor and given IV hydration. IV Pepcid was started for epigastric pain. Also given as needed Dilaudid IV. Kept n.p.o. overnight. Epigastric pain is resolved. Her lipase has returned to normal. She is to follow-up with general surgery regarding possible cholecystectomy, since this is her second bout of pancreatitis. There were no signs of cholilithiasis on present CT or abdominal ultrasound. Physical Exam Vital Signs: Temp Pulse Resp BP Pulse Ox 98.3 F 64 20 109/75 99 09/24/16 08:00 09/24/16 08:00 09/24/16 08:00 09/24/16 08:00 09/24/16 08:00 Intake & Output 09/23/16 09/24/16 09/25/16 06:59 06:59 06:59 Intake Total 1185 Output Total 2600 Balance -1415 Weight 64.2 kg General appearance: PRESENT: no acute distress, thin, well-developed, well- nourished Head exam: PRESENT: atraumatic, normocephalic Eye exam: PRESENT: conjunctiva pink, EOMI, PERRLA. ABSENT: scleral icterus Ear exam: PRESENT: normal external ear exam Mouth exam: PRESENT: moist, tongue midline Neck exam: ABSENT: carotid bruit, JVD, lymphadenopathy, thyromegaly Respiratory exam: PRESENT: clear to auscultation norberto. ABSENT: rales, rhonchi, wheezes Cardiovascular exam: PRESENT: RRR. ABSENT: diastolic murmur, rubs, systolic murmur Pulses: PRESENT: normal dorsalis pedis pul Vascular exam: PRESENT: normal capillary refill GI/Abdominal exam: PRESENT: normal bowel sounds, soft, tenderness - mild epigastric. ABSENT: distended, guarding, mass, organolmegaly, rebound Rectal exam: PRESENT: deferred Extremities exam: PRESENT: full ROM. ABSENT: calf tenderness, clubbing, pedal edema Neurological exam: PRESENT: alert, awake, oriented to person, oriented to place , oriented to time, oriented to situation, CN II-XII grossly intact. ABSENT: motor sensory deficit Psychiatric exam: PRESENT: appropriate affect, normal mood. ABSENT: homicidal ideation, suicidal ideation Skin exam: PRESENT: dry, intact, warm. ABSENT: cyanosis, rash Results Laboratory Results: 09/24/16 04:33 09/24/16 04:33 09/24/16 09/24/16 04:33 04:33 WBC 6.7 RBC 3.54 L Hgb 11.0 L Hct 32.9 L MCV 93 MCH 31.2 MCHC 33.5 RDW 13.1 Plt Count 175 Seg Neutrophils % 51.3 Lymphocytes % 34.5 Monocytes % 6.6 Eosinophils % 6.7 H Basophils % 0.9 Absolute Neutrophils 3.4 Absolute Lymphocytes 2.3 Absolute Monocytes 0.4 Absolute Eosinophils 0.4 Absolute Basophils 0.1 Sodium 139.4 Potassium 4.3 Chloride 109 H Carbon Dioxide 23 Anion Gap 7 BUN 7 Creatinine 0.60 Est GFR ( Amer) > 60 Est GFR (Non-Af Amer) > 60 Glucose 88 Calcium 9.2 Magnesium 1.8 Total Bilirubin 0.6 AST 20 ALT 26 Alkaline Phosphatase 92 Total Protein 6.2 L Albumin 3.4 L Triglycerides 146 Cholesterol 163.67 LDL Cholesterol Direct 66 VLDL Cholesterol 29.2 HDL Cholesterol 57 Lipase 95.7 Impressions: Abdomen Ultrasound 09/23/16 04:20 IMPRESSION: GALLSTONES. NO OTHER SIGNIFICANT FINDINGS. Abdomen/Pelvis CT 09/23/16 05:51 IMPRESSION: NO SIGNIFICANT OR ACUTE FINDING IN THE ABDOMEN OR PELVIS ON CT SCAN WITH IV CONTRAST. Qualifiers PATEINT BEING DISCHARGED WITH ANY OF THE FOLLOWING DIAGNOSIS?: No Plan Discharge Plan: Home with Time Spent: Less than 30 Minutes
[2016-09-24] MEDS ORDERED: FAMOTIDINE 20 MG TABLET PO SCH (22:00)
== END 2016-09-24 12:30 | disposition home or self-care (01) | DRG 776 ==
LOC: ER 01:58 → EH 08:36 → UNDOADMIN 08:44 → 4W 10:30
PROVIDERS: ADMIT Family Medicine; ATTEND Family Medicine
DX: O99.63 Diseases of the digestive system complicating the puerperium (principal); K85.10 Biliary acute pancreatitis without necrosis or infection; K21.9 Gastro-esophageal reflux disease without esophagitis; Z87.891 Personal history of nicotine dependence; Z82.49 Family history of ischemic heart disease and other diseases of the circulatory system
CPT/HCPCS: 36415; 74177; 76705; 80053; 80061; 81001; 81025; 83690; 83735; 85025; 93976; 99285; J1170; J2270; J2405; J7030; S0028

== ENCOUNTER 2016-10-07 10:36 | Day surgery (SDC) | payer OTHER ==
[2016-10-06 09:25] LABS: HEMATOCRIT 33.7 % (36.0-47.0); HEMOGLOBIN 11.6 g/dL (12.0-15.5); HGB HCT DIFFERENCE 1.1; MEAN CORPUSCULAR HEMOGLOBIN 31.6 pg (27.0-33.4); MEAN CORPUSCULAR HGB CONC 34.3 g/dL (32.0-36.0); MEAN CORPUSCULAR VOLUME 92 fl (80-97); RED BLOOD COUNT 3.66 10^6/uL (3.72-5.28); RED CELL DISTRIBUTION WIDTH 12.7 % (11.5-14.0); WHITE BLOOD COUNT 5.9 10^3/uL (4.0-10.5)
[2016-10-06 09:51] LABS: ALANINE AMINOTRANSFERASE 40 U/L (9-52); ALBUMIN 4.4 g/dL (3.5-5.0); ALKALINE PHOSPHATASE 107 U/L (38-126); AMYLASE 44 U/L (30-110); ANION GAP 10 (5-19); ASPARTATE AMINO TRANSFERASE 19 U/L (14-36); BILIRUBIN,DIRECT 0.3 mg/dL (0.0-0.4); BILIRUBIN,TOTAL 0.8 mg/dL (0.2-1.3); BLOOD UREA NITROGEN 13 mg/dL (7-20); CALCIUM 9.8 mg/dL (8.4-10.2); CARBON DIOXIDE 25 mmol/L (22-30); CHLORIDE 107 mmol/L (98-107); CREATININE RESULT 0.73 mg/dL (0.52-1.25); GLUCOSE 96 mg/dL (75-110); TOTAL PROTEIN 7.5 g/dL (6.3-8.2)
[~2016-10-07 10:36] MED LIST: ACETAMINOPHEN 325 MG TABLET PO PRN; CEFAZOLIN 1 GM/D5W RTU 1 GM/50 ML RTUPB IV PRN; DEXAMETHASONE SOD PHOSPHATE INJ 4 MG/1 ML VIAL ONE; GLYCOPYRROLATE INJ 0.4 MG/2 ML VIAL ONE; LACTATED RINGERS 1000 ML IV PRN; LIDOCAINE 0.5% INJ-PF (5 MG/ML) 50 ML SDV SUBCUT PRN; LIDOCAINE 2% INJ-PF (20 MG/ML) 10 ML AMPUL ONE; METOCLOPRAMIDE HCL INJ/PF 10 MG/2 ML SDV ONE; NEOSTIGMINE METHYLSULFATE 10 MG/10 ML VIAL ONE; ONDANSETRON HCL INJ/PF 4 MG/2 ML SDV ONE; ROCURONIUM BROMIDE INJ 50 MG/5 ML VIAL IV ONE; SUCCINYLCHOLINE CHLORIDE INJ 200 MG/10 ML VIAL ONE
[2016-10-07] MEDS ORDERED: BUPIVACAINE HCL 0.25 % INJ/PF (2.5 MG/1 ML) 30 ML VIAL ONE (12:24)
[2016-10-07] MEDS ORDERED: IBUPROFEN INJ 800 MG/8 ML VIAL IV ONE (12:25)
[2016-10-07] MEDS ORDERED: PROPOFOL INJ 200 MG/20 ML VIAL IV ONE (12:25)
[2016-10-07] MEDS ORDERED: MIDAZOLAM 2 MG/2 ML INJ ONE (12:25)
[2016-10-07] MEDS ORDERED: ACETAMINOPHEN 100 ML IV ONE (12:25)
[2016-10-07] MEDS ORDERED: HYDROMORPHONE HCL INJ/PF 2 MG/ML AMPULE ONE (12:25)
[2016-10-07] MEDS ORDERED: ONDANSETRON HCL INJ/PF 4 MG/2 ML SDV IV PRN (13:41)
[2016-10-07] MEDS ORDERED: DIPHENHYDRAMINE HCL 50 MG/ML VIAL IV PRN (13:41)
[2016-10-07] MEDS ORDERED: MEPERIDINE HCL/PF INJ 25 MG/1 ML DISP.SYRIN IV PRN (13:41)
[2016-10-07] MEDS ORDERED: PROMETHAZINE HCL INJ 25 MG/1 ML VIAL IV PRN ×2 (13:41)
[2016-10-07] MEDS ORDERED: FENTANYL CITRATE INJ/PF 100 MCG/2 ML AMPUL IV PRN ×3 (13:41)
[2016-10-07] MEDS ORDERED: OXYCODONE-ACETAMINOPHEN 5-325 MG TABLET PO PRN ×2 (13:41)
--- NOTE | 2016-10-07 14:26 | Operative Report ---
Operative Report DATE OF SURGERY: 10/07/16 PREOPERATIVE DIAGNOSIS: Symptomatic cholelithiasis with cholecystitis POSTOPERATIVE DIAGNOSIS: Same OPERATION: Laparoscopic cholecystectomy SURGEON: ROBERT VARELA HOME ENERGY RATER: [employer] ANESTHESIA: GA TISSUE REMOVED OR ALTERED: one gall bladder COMPLICATIONS: none ESTIMATED BLOOD LOSS: scant INTRAOPERATIVE FINDINGS: See below PROCEDURE: The patient was taken to the preop holding area the main operating room and general anesthesia was induced. Abdomen was exposed, prepped and draped in sterile fashion and instrumentation set of laparoscopic cholecystectomy Surgical plan and surgical timeout were conducted Skin was anesthetized with quarter percent Marcaine supraumbilical subxiphoid and subcostal positions. Vertically oriented incision was made above the umbilicus a 15 blade. Veress needle inserted peritoneal cavity pneumoperitoneum established. Veress needle removed 5 mm ports inserted a 5 mm flexible scope inserted. Under direct vision 3 additional ports were placed one in the subxiphoid to in subcostal position Adhesions between the gallbladder and the gastroduodenal area were thick and dense but there was minimal edema. Consistent with chronic cholecystitis. All these adhesions were taken down under direct visualization using hook cautery and blunt dissection this point we switched out and took the gallbladder down from the fundus. This was done under excellent visualization. Eventually of the gallbladder suspended solely from the cystic artery cystic duct. Photos were taken. The neck of the gallbladder was somewhat elongated. Cystic artery was clipped twice proximally once distally divided with scissors. The gallbladder was now suspended solely by the cystic duct. Photos were taken. Cystic duct was clipped once distally, and open to allow egress of bile which was somewhat cloudy. There were no stones milked out of the cystic duct. The cystic duct was then clipped twice proximally and divided with scissors. The gallbladder was removed from the patient to the supraumbilical port site without spillage of stones. Specimen sent to pathology We return to the peritoneal cavity and check for any mechanical bleeding there was none. There is no evidence of visceral injury. We felt the operation was complete. Patient was leveled out, residual irrigant aspirated, but as stated, and clips confirmed to be in good position on the cystic duct and cystic artery stumps. Ports removed under direct visualization pneumoperitoneum evacuated was closed with 3-0 Vicryl benzoin Steri-Strips. Patient tolerated the procedure well was extubated and taken recovery in stable condition. The physician certified first assistant, Ms. Monet, provided assistance during this case by: Assisting and port insertion, retracting tissue, instillation of local anesthesia and closure of skin incisions.
--- NOTE | 2016-10-07 14:29 | PDOC DISCHARGE SUMMARY ---
Discharge Summary (SDC) - Discharge Final Diagnosis: Cholelithiasis with cholecystitis Date of Surgery: 10/07/16 Discharge Date: 10/07/16 Condition: Good Treatment or Instructions: [facility] [address], [place] [address] Discharge Instructions: Laparoscopic Surgery 1. General Information: a. DO NOT DRIVE a car or operate dangerous machinery for 3-4 days or while taking narcotic pain pills. b. DO NOT consume alcohol, tranquilizers, sleeping medications or any non- prescribed medications for 24 hours unless approved by your doctor or as long as taking narcotic prescription medications. c. DO NOT make important decisions or sign any important papers for the first 24 hours after surgery. d. When discharged home the same day of surgery have a responsible person with you for the first night. 2. Activity Restrictions: 4 weeks. a. NO heavy lifting, straining abdominal muscles, bending over a lot, yard work, house work, or sports for 2 weeks. b. c. It is fine to go for walks, up and down steps, ride in a car. d. Elevate your head when sleeping/resting. 3. Treatment: a. You may shower 24 hours after surgery, no baths or swimming for 2 weeks. Remove band-aids or dressings before shower but leave paper strips (steri-strips ) on the skin to fall off on their own. If still on at postoperative visit they will be removed then. b. Drainage of fluid or blood is not unusual from an incision. If occurs, you can clean with peroxide and cotton ball daily and cover with dry gauze until the wound seals. c. If a lot of bleeding occurs, you can hold pressure with a gauze or cloth over the site for 10 minutes and it will usually stop. If bleeding continues you will need to call for possible evaluation in office or emergency room. 4. Medications: a. . Stop the narcotic when able since you cannot take it and drive, and they cause constipation. You may switch to plain Tylenol, Advil or Aleve as you transition from the narcotic. Many adults find good pain relief with Advil 600- 800 mg three times a day with meals. This can cause indigestion, ulcers, and kidney problems with long-term use. b. You should resume all normal medications unless a change is specified by your doctors. c. Begin with clear liquids and may progress to your normal diet if not nauseated. No high fat, high protein foods the day of surgery. Normal diet 6. The following may occur after laparoscopic surgery: a. Shoulder or upper back ache from retained gas that should resolve in 1-2 days b. Soreness and bruising at incision sites will resolve with time. c. Scrotal swelling (labia in women) and bruising is often seen after hernia surgery. d. Sore throat e. Fatigue may last days to weeks. f. Difficulty urinating may occur and may need to come into emergency room for urinary catheter placement. 7. Notify Physician If: a. Worsening or pain not improved with pain medication b. Persistent nausea and vomiting c. Fever above 101 d. Persistent bleeding or swelling at operative site e. Unable to urinate and uncomfortable bladder 6-8 hours after surgery 8..Follow Up Care: a. Schedule a follow up appointment with your doctor for 2 weeks. In the event of any postoperative problems or questions or you may call the office during business hours or the On-Call physician evenings and weekends at [facility]. [facility] I understand the instructions for my postoperative care as described above and a copy has been given to me. Patient/Significant Other Witness Date Prescriptions: Ketorolac Tromethamine [Toradol 10 mg Tablet] 10 mg PO Q6HP PRN #14 tablet PRN Reason: Discharge Diet: As Tolerated Discharge Activity: Activity As Tolerated Home Care Assistance: None Needed Report the Following to Your Physician Immediately: Shortness of Breath, Increase in Pain, Fever over 101 Degrees
[2016-10-07] MEDS ORDERED: ONDANSETRON HCL INJ/PF 4 MG/2 ML SDV ONE (14:55)
[2016-10-07] MEDS ORDERED: PROMETHAZINE HCL INJ 25 MG/1 ML VIAL ONE (15:04)
[2016-10-07 17:04] VITALS: BP 134/78
== END 2016-10-07 16:59 | disposition home or self-care (01) ==
LOC: OROUT 10:36
PROVIDERS: ATTEND Surgery
PROC: 0FT44ZZ Resection of Gallbladder, Percutaneous Endoscopic Approach (ICD-10-PCS; principal; 2016-10-07 12:45)
DX: K80.20 Calculus of gallbladder without cholecystitis without obstruction (principal); J45.909 Unspecified asthma, uncomplicated; Z88.5 Allergy status to narcotic agent; D64.9 Anemia, unspecified; Z79.3 Long term (current) use of hormonal contraceptives
CPT/HCPCS: 86900; 86901; 36415 ×2; 86850; 82150; 85027; 81025; 80076; 80048; 88304 ×2; 47562; J2250; J0690; J3490 ×2; J1100; J2765; J1170; J2550; J0330; J2405; J2704; J0131; J1741; 790